=== PATIENT | female | born 1985 | race Caucasian/White ===

== ENCOUNTER 2024-05-03 22:18 | Inpatient (IN) | payer OTHER, SELFPAY ==
[2024-05-03] VITALS (12 sets, daily range): BP systolic 125–139; BP diastolic 71–108; BMI 38.1; BMI 37.5
[2024-05-03] MEDS: OFIRMEV 100 IV (16:31)
[2024-05-03] MEDS: NSS 1000 IV (16:32)
[2024-05-03 16:37] LABS: % Basophils 0.5 % (0-2); % Eosinophils 0.9 % (0-6); % Immature Granulocytes 0.6 % (0-0.5); % Lymphocytes 5.2 % (20.5-51.1); % Monocytes 7.2 % (1.7-9.3); % Neutrophils 85.6 % (42.2-75.2); Absolute Eosinophils 0.1 10^3/uL (0-0.7); Absolute Immature Granulocytes 0.1 10^3/uL (0-0.05); Absolute Lymphocytes 0.4 10^3/uL (1.2-3.4); Absolute Monocytes 0.6 10^3/uL (0.1-0.6); Absolute Neutrophils 6.7 10^3/uL (1.4-6.5); Hematocrit 37.9 % (37.0-47.0); Hemoglobin 12.6 g/dL (12.0-16.0); Mean Corp Hgb Conc. 33.2 g/dL (33.0-37.0); Mean Corpuscular Hgb 26.4 pg (27.0-31.0); Mean Corpuscular Volume 79.3 fL (81.0-99.0); Mean Platelet Volume 9.5 fL (7.4-10.4); Nucleated Red Blood Cells % 0 %; Platelet Count 320 10^3/uL (130-400); Red Blood Cell Count 4.78 10^6/uL (4.20-5.40); Red Cell Dist. Width 13.9 % (11.5-14.5); White Blood Cell Count 7.9 10^3/uL (4.8-10.8)
--- NOTE | 2024-05-03 16:41 | ED.GENMED ---
History of Present Illness
<Rick Ingram MD - Last Filed: 05/03/24 18:59>
General
Chief Complaint: Weakness
Source: patient and family
Exam Limitations: none
Time Seen by Provider: 05/03/24 16:19
History of Present Illness
History of Present Illness:
39-year-old female was in her normal state of health that she woke from a nap at her aunts house today. She woke with sudden right sided neck pain pain down her back with weakness of all extremities. No infectious symptoms. She has been treated
recently prolonged antibiotics for a dental infection. She has had no dental procedures done. She denies acute other infectious symptoms at this time.
Past History
<Rick Ingram MD - Last Filed: 05/03/24 18:59>
Past History
ED Past Medical History: Other (MS) and Other (Migraines)
ED Past Surgical History: and Gynecological
Review of Systems
<Rick Ingram MD - Last Filed: 05/03/24 18:59>
Review of Systems
All Other Systems: Not applicable
Respiratory: Reports no symptoms
Cardiac: Reports no symptoms
ABD/GI: Reports no symptoms
Phy Exam
<Rick Ingram MD - Last Filed: 05/03/24 18:59>
Physical Exam
Physical Exam:
GENERAL: Alert. Some stuttering like speech
EYE: Orbits normal.
NECK: Mild right paracervical tenderness.
ENT: Pharynx without erythema. Dental caries right upper central incisor
CARDIAC: Tachycardic and regular no murmur
LUNGS: Clear breath sounds,normal
ABDOMEN: Soft, without focal tenderness or distention
NEUROLOGICAL: Alert and oriented , weakness left arm greater than right arm. Able to assistant nurse manager. Able to raise her arms up. No movement of the lower extremities. Decreased subjective sensation. Patellar reflexes intact
SKIN: Warm and dry, no rash or lesion, no discoloration, skin intact.
MUSCULOSKELETAL: No edema,no deformity.Good color
PSYCH: Anxious
Course
<Rick Ingram MD - Last Filed: 05/03/24 18:59>
Orders/Labs/Results
Orders:
Orders
05/03/24 00:00
CefTRIAXone [Rocephin] 2,000 mg IV Q12H
05/03/24 Breakfast
Regular
05/03/24 16:20
Cardiac Monitoring- Treatment ONCE
IV Insert/Care/Rem.- Treatment PRN
0.9% Sodium Chloride 1000 ml [Nss] 1,000 ml IV BOLUS
Pulse Ox/cont/shift [RESP] Urgent
Quantity: 1
05/03/24 16:21
Electrocardiogram (*1) Urgent
Reason for Study: Other
Other Reason for Exam: sepsis
EKG- Treatment ONCE
Test Result ONCE
05/03/24 16:22
Acetaminophen 1000MG/100Ml [Ofirmev] 1,000 mg in 100 ml IV ONCE
Acetaminophen IV Indication:: ED Narcotic Naive Pt-ONCE
05/03/24 16:27
C-Reactive Protein Urgent
Comment: ADD ON
COVID-19 Antigen Urgent
Source: Nasal Swab
Complete Blood Count/With Diff Urgent
Erythrocyte Sed Rate Urgent
Comment: ADD ON
Lactic Acid Q4H
Comment: CANCEL 2nd LACTIC ACID IF 1st LACTIC ACID IS LESS THAN 2
05/03/24 16:28
Comprehensive Metabolic Panel Urgent
HCG, Serum Qualitative Screen Urgent
Blood Culture Urgent
AGATHA Source: Blood/Venous
Specimen Description:
05/03/24 16:36
CT Cervical Spine W/o Iv Contr Urgent
Comment:
Reason For Exam: right sided neack pain. fvere
CT Head W/o Iv Contrast Urgent
Comment:
Reason For Exam: right sided neck pain. fever
Cardiac Monitoring- Treatment ONCE
05/03/24 16:42
Add On- LAB Urgent
Tests Added?: CRP, Sed rate
Urinalysis Reflex To Culture Urgent
Date Specimen was Collected: 05/03/24
Time Specimen was Collected: 16:40
Urine Microscopic Reflex Cult Urgent
05/03/24 16:47
Piperacillin/Tazo 4.5 Gram [Zosyn] 4.5 gram in 100 ml IV NOW
05/03/24 17:11
MR Brain W/o & With Contrast Stat
Comment:
Reason For Exam: Fever/neck pain/paraplegia
OK for patient to be off Cardiac Monitoring for MRI: Yes
Recent pill cam endoscopy?: No
MR Cervical Spine Without & W Stat
Comment:
Reason For Exam: Fever/neck pain/paraplegia
Recent pill cam endoscopy?: No
05/03/24 17:26
Vancomycin [Vancocin] 2,000 mg 0.9% Sodium Chloride 500 ml [Nss] 500 ml IV NOW
05/03/24 18:27
Ketorolac [Toradol] 15 mg .ROUTE .STK-MED ONE
05/03/24 18:29
Ketorolac [Toradol] 15 mg IV NOW STA
05/03/24 21:43
MR Thoracic Spine W/o & With Routine
Comment:
Reason For Exam: Weakness
OK for patient to be off Cardiac Monitoring for MRI: Yes
Recent pill cam endoscopy?: No
05/03/24 21:44
Myelin Basic Protein, CSF [S] Urgent
Oligoclonal Band Profile [S] Urgent
Spinal Fluid Protein Urgent
05/03/24 21:46
CSF Cell Count Urgent
CSF Tube Number: 3
Cryptococcal Antigen, CSF [S] Urgent
Comment: tube #4
Spinal Fluid Glucose Urgent
CSF Tube Number: 2
CSF Culture with Gram Stain Urgent
AGATHA Source: Csf
Specimen Description:
# of Tube: 3
Gram Stain Urgent
AGATHA Source: Csf
Specimen Description:
Comment: tube #1
Meningitis Panel, CSF by PCR Urgent
AGATHA Source: Csf
Specimen Description:
05/03/24 21:50
Admit/Transfer Patient As Directed
Co-Sign Provider:
Level of Care: Inpatient admission
Assign to:: IMU- Intermediate Care
Physician / Group: Nasim
Diagnosis: Weakness, COVID-19
Reason for Hospitalization: Weakness, COVID-19
Expected length of stay greater than two midnights?: Yes
ELOS- Estimated Length of Stay in days: 3
I certify the patient meets the requirements for IP care: Yes
PRN Pain Medication Management As Directed
May give lesser potent ordered pain med per pt: Yes
preference::
Protocol:: Medication orders for pain may be administered in a
manner that supports deferring to patient preference
when the pt is:
- Requesting an ordered lesser potent pain medication.
Least to most potent pain medications are defined
as: acetaminophen < NSAID < tramadol < opioids
(morphine, oxycodone, hydromorphone).
- Requesting a lesser dose of the same medication IF
ORDERED.
- Requesting a less intrusive route of administration
if both routes are prescribed by the provider (PO <
IV).
05/03/24 21:53
Code Status As Directed
Resuscitation Status: Full Code
05/03/24 22:00
Lyme Progressive Urgent
05/03/24 23:47
Acetaminophen [Tylenol] 650 mg PO Q4HPRN PRN
VANCOMYCIN Pharmacy to Dose [VANCOCIN Pharmacy to Dose] 1 each Pharmacy To Prepare [Call Pharmacy To Prepare] 0 ml IV PER PROTOCOL
05/03/24 23:47
Consult Notification Routine
Specialty to Notify: Infectious Disease
INFECTIOUS DISEASE CONSULT Routine
Consulting Provider: Willie Gagnon
Was physician already notified: No
Reason for consult: Weakness, COVID-19
NEUROLOGY CONSULT Routine
Consulting Provider: Nico Josue
Was physician already notified: Yes
Reason for consult: Weakness, COVID-19
TSH Reflex To Free T4 Routine
Activity As Directed
Activity Level: Ambulate
With Assistance
EKG with chest pain [ECG as needed] As Directed
ECG as needed for:: Chest Pain
I/O [Intake/ Output] As Directed
Frequency: Per unit guidelines
Neurological Checks As Directed
Frequency: q4h
Pneumatic Compression Sleeves As Directed
Type: Knee high
Precautions As Directed
Type of Precautions: Droplet
Vital Signs As Directed
Frequency: Per unit guidelines
Weight As Directed
Frequency: Daily
Oxygen Therapy [O2 Therapy] [RESP] Routine
Titrate/Wean O2 to maintain O2 sat greater than (%): 94
Ot Eval And Treat Routine
PT Consult [Pt Eval And Treat] Routine
Activity Level: Ambulate
With Assistance
DX Deep Vein Thrombosis Video Routine
05/04/24 06:00
Complete Blood Count/No Diff IN AM
05/04/24 08:00
Lansoprazole [Prevacid] 30 mg PO DAILY
Sertraline HCl [Zoloft] 50 mg PO DAILY
Abnormal Lab Results
05/03/24 05/03/24 05/03/24
16:27 16:28 16:42
MCV 79.3 L fL
(81.0-99.0)
MCH 26.4 L pg
(27.0-31.0)
Abs Immat Gran (auto) 0.1 H 10^3/uL
(0-0.05)
Absolute Neuts (auto) 6.7 H 10^3/uL
(1.4-6.5)
Absolute Lymphs (auto) 0.4 L 10^3/uL
(1.2-3.4)
Immature Gran % 0.6 H %
(0-0.5)
Neutrophils % 85.6 H %
(42.2-75.2)
Lymphocytes % 5.2 L %
(20.5-51.1)
BUN 18 H mg/dl
(7-17)
Alkaline Phosphatase 131 H U/L
(38-126)
C-Reactive Protein 25.00 H mg/L
(0.0-10.00)
Ur Occult Blood Reflex 2+ A
(Negative)
Urine RBC 3-6 A /HPF
(0-2)
SARS-CoV-2 Antigen Positive A
(Negative)
05/03/24 16:27
05/03/24 16:28
Vital Signs
Initial and Last Documented VS:
Initial Vital Signs
Pulse Ox
98
05/03/24 16:13
Last Documented Vital Signs
Temp Pulse Resp BP Pulse Ox
98.6 F 80 16 131/108 100
05/04/24 01:49 05/03/24 23:45 05/03/24 23:45 05/03/24 22:30 05/04/24 00:49
<Willie Webber, DO - Last Filed: 05/04/24 01:58>
Orders/Labs/Results
Orders:
Orders
05/03/24 00:00
CefTRIAXone [Rocephin] 2,000 mg IV Q12H
05/03/24 Breakfast
Regular
05/03/24 16:20
Cardiac Monitoring- Treatment ONCE
IV Insert/Care/Rem.- Treatment PRN
0.9% Sodium Chloride 1000 ml [Nss] 1,000 ml IV BOLUS
Pulse Ox/cont/shift [RESP] Urgent
Quantity: 1
05/03/24 16:21
Electrocardiogram (*1) Urgent
Reason for Study: Other
Other Reason for Exam: sepsis
EKG- Treatment ONCE
Test Result ONCE
05/03/24 16:22
Acetaminophen 1000MG/100Ml [Ofirmev] 1,000 mg in 100 ml IV ONCE
Acetaminophen IV Indication:: ED Narcotic Naive Pt-ONCE
05/03/24 16:27
C-Reactive Protein Urgent
Comment: ADD ON
COVID-19 Antigen Urgent
Source: Nasal Swab
Complete Blood Count/With Diff Urgent
Erythrocyte Sed Rate Urgent
Comment: ADD ON
Lactic Acid Q4H
Comment: CANCEL 2nd LACTIC ACID IF 1st LACTIC ACID IS LESS THAN 2
05/03/24 16:28
Comprehensive Metabolic Panel Urgent
HCG, Serum Qualitative Screen Urgent
Blood Culture Urgent
AGATHA Source: Blood/Venous
Specimen Description:
05/03/24 16:36
CT Cervical Spine W/o Iv Contr Urgent
Comment:
Reason For Exam: right sided neack pain. fvere
CT Head W/o Iv Contrast Urgent
Comment:
Reason For Exam: right sided neck pain. fever
Cardiac Monitoring- Treatment ONCE
05/03/24 16:42
Add On- LAB Urgent
Tests Added?: CRP, Sed rate
Urinalysis Reflex To Culture Urgent
Date Specimen was Collected: 05/03/24
Time Specimen was Collected: 16:40
Urine Microscopic Reflex Cult Urgent
05/03/24 16:47
Piperacillin/Tazo 4.5 Gram [Zosyn] 4.5 gram in 100 ml IV NOW
05/03/24 17:11
MR Brain W/o & With Contrast Stat
Comment:
Reason For Exam: Fever/neck pain/paraplegia
OK for patient to be off Cardiac Monitoring for MRI: Yes
Recent pill cam endoscopy?: No
MR Cervical Spine Without & W Stat
Comment:
Reason For Exam: Fever/neck pain/paraplegia
Recent pill cam endoscopy?: No
05/03/24 17:26
Vancomycin [Vancocin] 2,000 mg 0.9% Sodium Chloride 500 ml [Nss] 500 ml IV NOW
05/03/24 18:27
Ketorolac [Toradol] 15 mg .ROUTE .STK-MED ONE
05/03/24 18:29
Ketorolac [Toradol] 15 mg IV NOW STA
05/03/24 21:43
MR Thoracic Spine W/o & With Routine
Comment:
Reason For Exam: Weakness
OK for patient to be off Cardiac Monitoring for MRI: Yes
Recent pill cam endoscopy?: No
05/03/24 21:44
Myelin Basic Protein, CSF [S] Urgent
Oligoclonal Band Profile [S] Urgent
Spinal Fluid Protein Urgent
05/03/24 21:46
CSF Cell Count Urgent
CSF Tube Number: 3
Cryptococcal Antigen, CSF [S] Urgent
Comment: tube #4
Spinal Fluid Glucose Urgent
CSF Tube Number: 2
CSF Culture with Gram Stain Urgent
AGATHA Source: Csf
Specimen Description:
# of Tube: 3
Gram Stain Urgent
AGATHA Source: Csf
Specimen Description:
Comment: tube #1
Meningitis Panel, CSF by PCR Urgent
AGATHA Source: Csf
Specimen Description:
05/03/24 21:50
Admit/Transfer Patient As Directed
Co-Sign Provider:
Level of Care: Inpatient admission
Assign to:: IMU- Intermediate Care
Physician / Group: Nasim
Diagnosis: Weakness, COVID-19
Reason for Hospitalization: Weakness, COVID-19
Expected length of stay greater than two midnights?: Yes
ELOS- Estimated Length of Stay in days: 3
I certify the patient meets the requirements for IP care: Yes
PRN Pain Medication Management As Directed
May give lesser potent ordered pain med per pt: Yes
preference::
Protocol:: Medication orders for pain may be administered in a
manner that supports deferring to patient preference
when the pt is:
- Requesting an ordered lesser potent pain medication.
Least to most potent pain medications are defined
as: acetaminophen < NSAID < tramadol < opioids
(morphine, oxycodone, hydromorphone).
- Requesting a lesser dose of the same medication IF
ORDERED.
- Requesting a less intrusive route of administration
if both routes are prescribed by the provider (PO <
IV).
05/03/24 21:53
Code Status As Directed
Resuscitation Status: Full Code
05/03/24 22:00
Lyme Progressive Urgent
05/03/24 23:47
Acetaminophen [Tylenol] 650 mg PO Q4HPRN PRN
VANCOMYCIN Pharmacy to Dose [VANCOCIN Pharmacy to Dose] 1 each Pharmacy To Prepare [Call Pharmacy To Prepare] 0 ml IV PER PROTOCOL
05/03/24 23:47
Consult Notification Routine
Specialty to Notify: Infectious Disease
INFECTIOUS DISEASE CONSULT Routine
Consulting Provider: Willie Gagnon
Was physician already notified: No
Reason for consult: Weakness, COVID-19
NEUROLOGY CONSULT Routine
Consulting Provider: Nico Josue
Was physician already notified: Yes
Reason for consult: Weakness, COVID-19
TSH Reflex To Free T4 Routine
Activity As Directed
Activity Level: Ambulate
With Assistance
EKG with chest pain [ECG as needed] As Directed
ECG as needed for:: Chest Pain
I/O [Intake/ Output] As Directed
Frequency: Per unit guidelines
Neurological Checks As Directed
Frequency: q4h
Pneumatic Compression Sleeves As Directed
Type: Knee high
Precautions As Directed
Type of Precautions: Droplet
Vital Signs As Directed
Frequency: Per unit guidelines
Weight As Directed
Frequency: Daily
Oxygen Therapy [O2 Therapy] [RESP] Routine
Titrate/Wean O2 to maintain O2 sat greater than (%): 94
Ot Eval And Treat Routine
PT Consult [Pt Eval And Treat] Routine
Activity Level: Ambulate
With Assistance
DX Deep Vein Thrombosis Video Routine
05/04/24 06:00
Complete Blood Count/No Diff IN AM
05/04/24 08:00
Lansoprazole [Prevacid] 30 mg PO DAILY
Sertraline HCl [Zoloft] 50 mg PO DAILY
Abnormal Lab Results
05/03/24 05/03/24 05/03/24
16:27 16:28 16:42
MCV 79.3 L fL
(81.0-99.0)
MCH 26.4 L pg
(27.0-31.0)
Abs Immat Gran (auto) 0.1 H 10^3/uL
(0-0.05)
Absolute Neuts (auto) 6.7 H 10^3/uL
(1.4-6.5)
Absolute Lymphs (auto) 0.4 L 10^3/uL
(1.2-3.4)
Immature Gran % 0.6 H %
(0-0.5)
Neutrophils % 85.6 H %
(42.2-75.2)
Lymphocytes % 5.2 L %
(20.5-51.1)
BUN 18 H mg/dl
(7-17)
Alkaline Phosphatase 131 H U/L
(38-126)
C-Reactive Protein 25.00 H mg/L
(0.0-10.00)
Ur Occult Blood Reflex 2+ A
(Negative)
Urine RBC 3-6 A /HPF
(0-2)
SARS-CoV-2 Antigen Positive A
(Negative)
05/03/24 16:27
05/03/24 16:28
Vital Signs
Initial and Last Documented VS:
Initial Vital Signs
Pulse Ox
98
05/03/24 16:13
Last Documented Vital Signs
Temp Pulse Resp BP Pulse Ox
98.6 F 80 16 131/108 100
05/04/24 01:49 05/03/24 23:45 05/03/24 23:45 05/03/24 22:30 05/04/24 00:49
<Rick Ingram MD - Last Filed: 05/03/24 18:59>
MDM/Problems Addressed
Differential Diagnosis Includes:
Large differential. Patient did not know she had a fever. She has had no recent infectious issues except for a dental infection that has been treated with multiple doses of amoxicillin. Would have to entertain cervical epidural abscess. Causing
lower extremity weakness and some upper extremity weakness. Infection with weakness secondary to MS flare. Workup in progress.
<Rick Ingram MD - Last Filed: 05/03/24 18:59>
*Pulse Oximetry
Patient hypoxic: no
*EKG
Interpreted by ED Provider?: Yes
Interpretation: abnormal
Comparison EKG: no comparison EKG present
Heart Rate: 113
Rate: tachycardiac
Rhythm: sinus
[place]: normal axis
Interval: normal interval
QRS Pattern: normal QRS
Ischemia: no ischemia
*Mannequin Maker Interpretation
Rate: normal
Interpretation: normal
Heart Rate: 96
Rhythm: sinus
<Willie Webber DO - Last Filed: 05/04/24 01:58>
*Critical Care Note
Total Time (30-74mins, 75-104mins- exclusive of procedures): 30 ( Critical care statement: A total of 30 minutes of critical care time was provided for this patient. This time is separate from time utilized to perform the aforementioned documented
procedures. Aggregate critical care time includes only time during which I was engaged in work direct)
<Rick Ingram MD - Last Filed: 05/03/24 18:59>
Update Note
Update Note:
1640.... Patient with weakness of both upper extremities left greater than right. Typically left-sided is weaker. However patient describes both as being weaker than baseline. She has no movement of her lower extremities. Decreased sensation.
She does have patellar reflexes. Difficult case. With sudden onset of symptoms and fever differential is very large at this point. It would include a cervical epidural abscess. Secondary infection with resulting MS flare.
1700... Awaiting response from neurology. They were texted immediately
1715... Neurology will be coming in. Patient and family updated.
1900.... Awaiting neurology and MRI
<Willie Webber DO - Last Filed: 05/04/24 01:58>
Update Note
Update Note:
1640.... Patient with weakness of both upper extremities left greater than right. Typically left-sided is weaker. However patient describes both as being weaker than baseline. She has no movement of her lower extremities. Decreased sensation.
She does have patellar reflexes. Difficult case. With sudden onset of symptoms and fever differential is very large at this point. It would include a cervical epidural abscess. Secondary infection with resulting MS flare.
1700... Awaiting response from neurology. They were texted immediately
1715... Neurology will be coming in. Patient and family updated.
1900.... Awaiting neurology and MRI
05/03/20242 PM: In to see the patient to discuss MRI findings. Neurologist, Dr. Nico Josue at the bedside as well. Patient to be admitted to [facility] for continued care per the recommendation of neurology. Hospitalist aware.
ED Attending Note
<Rick Ingram MD - Last Filed: 05/03/24 18:59>
-
Portions of this chart may have been created with voice recognition software.� Occasional wrong word or��sound alike� substitutions may have occurred due to the inherent limitations of voice recognition software.
Discharge Plan
Departure
Patient Disposition: Admit
Date of Disposition: 05/03/24
Time of Disposition: 21:13
Admit to: Telemetry
Presentation/result/management discussed w/ accepting MD/DO: Hospitalist
Discharge Problem:
sudden paralysis, COVID-19
Interventions
Interventions:
*Risk Screen - Suicide Last Done: 05/03/24 19:29
*General Assessment Last Done: 05/03/24 19:29
*Neglect/Abuse Screening Last Done: 05/03/24 19:29
ED- Fall Risk Assessment Last Done: 05/03/24 17:35
*ED COVID-19 Vaccine History Last Done: 05/04/24 00:30
*Nursing Disposition Last Done: 05/04/24 00:01
ED- Cardiac Assessment Last Done: 05/03/24 17:35
ED- Neurological Assessment Last Done: 05/03/24 17:35
ED- Pulmonary Assessment Last Done: 05/03/24 17:35
Discharge Date and Time
Discharge Date/Time: 05/04/24 00:02
[2024-05-03 16:48] LABS: Lactic Acid 1.9 mmol/L (0.7-2.0)
[2024-05-03 16:50] LABS: Urine Albumin Negative (Neg - Trace); Urine Bilirubin Negative (Negative); Urine Character Clear (Clear); Urine Color Yellow; Urine Glucose Negative (Negative); Urine Ketone Negative (Negative); Urine Leukocyte Negative (Negative); Urine Nitrite Negative (Negative); Urine Occult Blood 2+ (Negative); Urine Urobilinogen Negative (Neg - 1+)
[2024-05-03 16:52] LABS: HCG, Serum Qualitative Screen Negative
[2024-05-03 16:57] LABS: ALT (SGPT) 20 U/L (0-35); AST (SGOT) 20 U/L (14-36); Albumin 4.5 g/dl (3.5-5.0); Alkaline Phosphatase 131 U/L (38-126); Blood Urea Nitrogen 18 mg/dl (7-17); Calcium 9.5 mg/dl (8.4-10.2); Carbon Dioxide 25 mmol/L (22-30); Chloride 103 mmol/L (98-107); Estimated Creatinine Clearance > 125 ml/min; Glucose 98 mg/dl (70-99); Sodium 142 mmol/L (135-145); Total Bilirubin 0.2 mg/dl (0.2-1.3); Total Protein 7.4 g/dl (6.3-8.2); eGFR > 60.00
[2024-05-03 17:01] LABS: COVID-19 Antigen Positive (Negative)
[2024-05-03 17:08] LABS: Urine White Cell 0-2 /HPF (0-5)
[2024-05-03] MEDS: ZOSYN 100 IV (17:27)
[2024-05-03] MEDS: VANCOCIN 540 MG IV (18:09)
[2024-05-03 18:13] LABS: Erythrocyte Sed Rate 19 mm/hour (0-20)
[2024-05-03] MEDS: TORADOL 15 MG IV (19:06)
--- NOTE | 2024-05-03 21:40 | CON.NEURO4 ---
Consultation - Neurology 4
-
CONSULTING PHYSICIAN: Nico Josue MD
REFERRING PHYSICIAN: Hospitalist
DICTATED BY: Nico Josue MD
DATE/TIME OF REQUEST: 05/03/2024
DATE/TIME OF CONSULTATION: 05/03/2024 2000HRS
Reason for Consultation: Weakness
History of Present Illness: This is a 39 year old right handed female who has presented to the hospital with (chief complaint) of neck pain and weakness. She gives a h/o chronic migraines, Multiple sclerosis seizures and obesity who has been
previously evaluated by [facility] @ [facility]. She had been in her USOH till this afternoon. She had driven to [place] with family for a concert on Saturday. Earlier this morning she drove home. Later she took a nap and woke up with headache and neck
pain. She then reported to her family she couldnt move her legs. She was brought to ER
A week ago she was seen by her dentist for caries and decaying front tooth and placed on Amoxicillin
On my exam pat awake alert oriented in no distress with normal speech and give away pattern of weakness. Claims lack of sensation from hip down. No loss of sensation in groin
Lumbar puncture attempted. Given obesity and difficulty positioning patient unable to obtain access subarachnoid space. No CSF collected.
Pat is COVID +
Past Medical History: MS, migraines
Surgical History: C Section
Family History: NC
Social History: Lives at home with her family
Allergies: Benadryl tetanus
Home Medications: diroximel fumarate 231 mg capsule,delayed release (Vumerity) 462 mg PO BID 05/03/24
estradiol 2 mg tablet 2 mg PO DAILY 05/03/24
gabapentin 400 mg capsule 400 mg PO TID 05/03/24
galcanezumab-gnlm 120 mg/mL subcutaneous pen injector (Emgality Pen) 120 mg SC MONTHLY 05/03/24
methylprednisolone 4 mg tablets in a dose pack 4 mg PO PER PKG DIR 05/03/24
omeprazole 20 mg capsule,delayed release 20 mg PO DAILY 05/03/24
ondansetron HCl 4 mg tablet 4 mg PO TIDPRN PRN nausea 05/03/24
sertraline 50 mg tablet 50 mg PO DAILY 05/03/24
sumatriptan succinate 50 mg tablet 50 mg PO UD PRN migraine 05/03/24
Review of Symptoms:
Patient denies any fever, headache, chest pain, shortness of breath, GI or symptoms.
�Per the HPI.�All systems are reviewed negative except above.
�- Remove any of these problems that patient may have complained about in the HPI.
�- If patient is unresponsive, intubated or demented, say 'Per the HPI. I am unable to obtain a complete review of systems�because of patient's inability to provide history.'
Vital Signs:
The patient has a
Temp Pulse Resp BP Pulse Ox
37.1 C 74 22 133/83 99
05/03/24 17:00 05/03/24 21:15 05/03/24 21:15 05/03/24 21:05 05/03/24 21:15
Physical Exam:
The patient is afebrile, heart sounds S1 and S2 are (regular / irregular), and chest is clear to auscultation bilaterally.
-
Neurologic Examination:
The patient is awake, alert and oriented x 3. She is able to follow commands and answer questions appropriately. There is no aphasia or dysarthria. On cranial nerve assessment, pupils are 3 mm bilateral, round and reactive to light and
accommodation. Visual haynes are full. Extraocular movements are intact. Facial sensations are intact and bilaterally symmetrical, there is no facial asymmetry. Hearing is intact bilaterally to normal conversation volume. Tongue palate and uvula
are midline. Sternocleidomastoid strengths are full bilaterally.
Motor strength 1/5 bilateral upper and lower extremities, give away pattern. There is no drift or involuntary movement noted. Deep tendon reflexes are 2+ bilateral upper and lower extremities and Babinski is absent bilaterally. Sensations of pain,
touch, temperature and vibration are impaired. Coordination is intact by finger to nose bilaterally. Rombergs and Gait could not be tested as pat is bedbound
No incontinence
Lab Results: Addendum
Neuro Imaging: MRI brain shows 3-4 T2 lesions with intact corpus callosum nonspecific migraine vs demyelination.
MRI C-Spine WNL shows no lesions
Impression:
Ms. CLEMENT BARTH is a 39 year old F who has presented to the hospital with (symptoms/chief complaint) of neck pain and generalized weakness.
Differentials for the patient's presentation include:
1. MS exacerbation
2. Transverse myelitis
3. Epidural abscess
4. COVID
Patient has the following risk factors for their symptoms:
IV Tenecteplase/IAT candidacy
Recommendations:
1. IV antibiotics
2. Lumbar puncture
3. MRI Thoracic spine with Edd
4. Consider IV Solumedrol if T-Spine reveals transverse myelitis and no new infections
5. ID consult
6. PT/OT
Discussed patient care with: Hospitalist
Allergies
-
Allergies
Allergy/AdvReac Type Severity Reaction Status Date / Time
diphenhydramine Allergy Hives Verified 05/03/24 16:20
[From Benadryl]
Tetanus Vaccines and Toxoid Allergy Unknown Verified 05/03/24 16:20
Vital Signs and Labs
-
Vital Signs and Labs:
Vital Signs
Temp Pulse Resp BP Pulse Ox
37.1 C 74 22 133/83 99
05/03/24 17:00 05/03/24 21:15 05/03/24 21:15 05/03/24 21:05 05/03/24 21:15
Lab Results
05/03/24 16:27
05/03/24 16:28
Sodium 142 mmol/L (135-145) 05/03/24 16:28
Potassium 4.0 mmol/L (3.5-5.1) 05/03/24 16:28
BUN 18 mg/dl (7-17) H 05/03/24 16:28
Glucose 98 mg/dl (70-99) 05/03/24 16:28
Calcium 9.5 mg/dl (8.4-10.2) 05/03/24 16:28
Medications
-
Home Medications
�Medication �Instructions �Recorded
diroximel fumarate 231 mg 462 mg PO BID 05/03/24
capsule,delayed release (Vumerity)
estradiol 2 mg tablet 2 mg PO DAILY 05/03/24
gabapentin 400 mg capsule 400 mg PO TID 05/03/24
galcanezumab-gnlm 120 mg/mL 120 mg SC MONTHLY 05/03/24
subcutaneous pen injector
(Emgality Pen)
methylprednisolone 4 mg tablets in 4 mg PO PER PKG DIR 05/03/24
a dose pack
omeprazole 20 mg capsule,delayed 20 mg PO DAILY 05/03/24
release
ondansetron HCl 4 mg tablet 4 mg PO TIDPRN PRN nausea 05/03/24
sertraline 50 mg tablet 50 mg PO DAILY 05/03/24
sumatriptan succinate 50 mg tablet 50 mg PO UD PRN migraine 05/03/24
--- NOTE | 2024-05-03 21:58 | HPS.HSE ---
Family Physician
-
Family Physician: Heidi Early
Chief Complaint
-
Weakness / Neck Pain
History of Present Illness
Patient is a 39y F with PMH significant for MS and migraines who presents to ED complaining of neck pain / back pain and global weakness that started this afternoon. Patient states that she was feeling well lately. She drove to [place] for a
concert yesterday and drove back today. She was in the pool / swimming earlier today. She took a nap this afternoon around 2PM. She woke around 3:30 PM with sharp pain in the R neck and radiating down the back. She states that she 'could not
move'. Apparently she was able to sit upright after waking, but then noted that she was completely unable to move her arms or her legs. She had no pain other than the previously mentioned neck / back pain.
Patient had no other symptoms such as cough, fevers / chills, etc.
Patient has MS and states she was diagnosed one year ago. She is followed by Neurology at [facility].
Patient states that her initial symptoms of R sided numbness have never improved. She has also appreciated gradual L sided weakness over the past year.
Her only new medications are Emgality (1st dose on 04/27) and amoxicillin.
Patient reports dental infection (R upper incisor) and notes that she has been on three consecutive courses of amoxicillin. Her last dose of abx was yesterday.
Medical History
Past Medical History
Past Medical History: Reports Other
Additional Past Medical History:
Multiple Sclerosis
Migraine Headaches
Obesity
Past Surgical History: Reports Other
Additional Past Surgical History:
BRAIN
Social History
Tobacco: Former Smoker (Quit smoking 4 years ago. Approx 20 pack years.)
Alcohol: None
Drug: None
Family History
Family History: Not pertinent
Allergies / Home Medications
Allergies reflects when Allergies were last updated in [employer].
Home Medications with original date entered in [employer]
Allergy/Medication List:
Allergies
Allergy/AdvReac Type Severity Reaction Status Date / Time
diphenhydramine Allergy Hives Verified 05/03/24 16:20
[From Benadryl]
Tetanus Vaccines and Toxoid Allergy Unknown Verified 05/03/24 16:20
Home Medications
diroximel fumarate 231 mg capsule,delayed release (Vumerity) 462 mg PO BID 05/03/24
estradiol 2 mg tablet 2 mg PO DAILY 05/03/24
gabapentin 400 mg capsule 400 mg PO TID 05/03/24
galcanezumab-gnlm 120 mg/mL subcutaneous pen injector (Emgality Pen) 120 mg SC MONTHLY 05/03/24
methylprednisolone 4 mg tablets in a dose pack 4 mg PO PER PKG DIR 05/03/24
omeprazole 20 mg capsule,delayed release 20 mg PO DAILY 05/03/24
ondansetron HCl 4 mg tablet 4 mg PO TIDPRN PRN nausea 05/03/24
sertraline 50 mg tablet 50 mg PO DAILY 05/03/24
sumatriptan succinate 50 mg tablet 50 mg PO UD PRN migraine 05/03/24
Review of Systems
-
History Source: Patient
A 12 point ROS was completed and negative except as noted: Yes
Constitutional: Reports Fatigue; Denies Fever or Chills
EENT: Denies Sore Throat
Respiratory: Denies Cough or Trouble Breathing
Cardiac: Denies Chest Pain or Palpitations
Abdomen/GI: Denies Abdominal Pain, Nausea, Vomiting or Diarrhea
: Denies Dysuria or Flank Pain
Musculoskeletal: Reports Other (Neck pain / Back Pain); Denies Joint Pain or Edema
Neurological: Reports Headache, Weakness and Numbness
Psych: Denies Depression or Anxiety
Physical Exam
Vital Signs
Vital Signs
Temp Pulse Resp BP Pulse Ox
98.7 F 74 22 133/83 99
05/03/24 17:00 05/03/24 21:15 05/03/24 21:15 05/03/24 21:05 05/03/24 21:15
Physical Exam
General: Other (39y F in no acute distress. Awake and alert and oriented.)
HEENT: Moist mucous membranes, PERRLA and Other (Thick neck.)
Respiratory: Clear; No Wheezes, Rales or Rhonchi
Cardiac: S1/S2 and Regular Rhythm; No Murmur
GI: Soft, Non Tender, Non Distended and Normal Bowel Sounds
Musculoskeletal: No Clubbing, No Cyanosis and No Edema
Neuro: AO x 3 and Other (Patient with near-global weakness by exam versus absence of effort. No evident hyperreflexia. No clear sensory level (reports no sensation in legs or arms, but positive sensation hips and abdomen))
Psych: No Agitated, Anxious or Depressed
Laboratory Results
-
05/03/24 16:27
05/03/24 16:28
Laboratory Results
Lactic Acid Cancelled 05/03/24 20:30
Total Bilirubin 0.2 mg/dl (0.2-1.3) 05/03/24 16:28
AST 20 U/L (14-36) 05/03/24 16:28
ALT 20 U/L (0-35) 05/03/24 16:28
Alkaline Phosphatase 131 U/L (38-126) H 05/03/24 16:28
Impression/Plan
-
A/P: Patient is a 39y F with PMH significant for MS who presents to ED complaining of sudden / global weakness.
Global Weakness
- Admit for further evaluation and treatment.
- Symptoms / exam are somewhat confounding with no clear sensory level, atypical pattern of weakness, etc.
- Fever without other symptoms.
- Known MS, but MRI brain and C-spine without significant new lesions, etc.
- Neurology evaluation appreciated.
- LP pending.
- Check MRI T-spine as well for completeness - but upper extremity symptoms make lower lesion / issue unlikely.
- Follow serial neuro exams for any changes.
- Continue empiric IV abx for now and follow-up LP / culture data / etc.
- ? EMG / NCS if symptoms worsen or persist.
COVID Positive
- Patient with fever on arrival to 102.9. No symptoms of cough, dyspnea, sore throat, chills, etc.
- No prior SARS-CoV-2 vaccinations.
- Not currently hypoxemic.
- ? BRADLEY due to COVID; however, deficits do no match typical BRADLEY as noted above.
- ID evaluation for additional recommendations.
- Follow proper precautions.
Multiple Sclerosis
- Diagnosed 1 year ago and followed at [facility].
- Patient reports persistent R numbness and L weakness since that time.
- Imaging this far does not show significant collection of new lesions.
Chronic Migraine Headache
- Started om Emgality about one week ago. Doubt this is related to current presentation.
Anxiety / Depression
- Stable. Continue sertraline.
Obesity due to excess calories
- Affects all aspects of care.
- Encourage healthy diet and increased activity with goal of weight loss.
DVT Prophylaxis: SCDs
Code Status: Full
[2024-05-04] VITALS (13 sets, daily range): BP systolic 116–133; BP diastolic 70–90; PULSE 82; O2SAT 98
[2024-05-04] MEDS: TORADOL 15 MG IV (01:16)
[2024-05-04] MEDS: ROCEPHIN 2000 MG IV ×2 (01:18→01:23)
[2024-05-04] MEDS: STERILE WATER FOR INJECTION 20 ML IV (01:19)
[2024-05-04] MEDS: ROCEPHIN IV (02:20)
--- NOTE | 2024-05-04 03:04 | PTCARENOTE ---
Addendum entered by Courtney Gimenez RN 05/04/24 03:25:
Pt placed on Airborne precaution due to ordered Meningitis Panel.
Original Note:
Pt AAOX3. Upon arrival to IMU Pt states she is starting to get movement back in her fingers/hand to wrists. Pt able to hold call wheat and push buttons. 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
told her it 'could be from steroids' she was prescribed for a MS flare. Pt's current at home med list includes steroids for a MS flare, will pass on to day shift. Pt also informing RN that she feels like she has water in here ears with no pain and
can hear appropriately, will pass on to day shift. Pt having pain in head down back to where LP was attempted, corina [employer] made aware one time order for Toradol given. Reassessment Pt had mild relief to Pt's acceptable pain level. Pt has no further
complaints at this time. Call wheat within reach. Assessment care and vitals as charted.
[2024-05-04] MEDS: VANCOCIN 275 MG IV (05:02)
[2024-05-04] MEDS: TYLENOL 650 MG PO ×4 (05:18→22:55)
[2024-05-04 05:58] LABS: Hematocrit 37.7 % (37.0-47.0); Hemoglobin 12.4 g/dL (12.0-16.0); Mean Corp Hgb Conc. 32.9 g/dL (33.0-37.0); Mean Corpuscular Hgb 26.2 pg (27.0-31.0); Mean Corpuscular Volume 79.5 fL (81.0-99.0); Mean Platelet Volume 9.9 fL (7.4-10.4); Platelet Count 298 10^3/uL (130-400); Red Blood Cell Count 4.74 10^6/uL (4.20-5.40); White Blood Cell Count 5.9 10^3/uL (4.8-10.8)
[2024-05-04 06:12] LABS: ALT (SGPT) 18 U/L (0-35); AST (SGOT) 18 U/L (14-36); Albumin 3.9 g/dl (3.5-5.0); Alkaline Phosphatase 100 U/L (38-126); Blood Urea Nitrogen 10 mg/dl (7-17); Calcium 8.6 mg/dl (8.4-10.2); Carbon Dioxide 29 mmol/L (22-30); Chloride 103 mmol/L (98-107); Direct Bilirubin 0.1 mg/dl (0.0-0.4); Estimated Creatinine Clearance > 125 ml/min; Glucose 105 mg/dl (70-99); Potassium 3.7 mmol/L (3.5-5.1); Sodium 140 mmol/L (135-145); Total Bilirubin 0.2 mg/dl (0.2-1.3); Total Protein 6.7 g/dl (6.3-8.2); eGFR > 60.00
--- NOTE | 2024-05-04 07:55 | W.PN.HOSP.TC ---
Addendum entered and electronically signed by Jim Gonzalez MD 05/04/24 15:53:
COVID-19 asymptomatic not requiring oxygen. Known history of MS immunocompromise outpatient steroids. Start Paxlovid. No antibiotics indicated. ID consulted overnight.
Bilateral lower extremity weakness numbness. Possibly related to MS flare in the setting of acute infection versus GBS versus transverse myelitis versus encephalitis.
MRI brain and C-spine reviewed. For MRI thoracic lumbar spine. LP pending, IR consulted however they would like to see what the MRI transfer spine/lumbar spine show prior to the LP.
Original Note:
Today's Communication/Plan
-
Started on Paxlovid
MRI lumbar spine
Lumbar puncture
Assessment / Plan
Assessment / Plan
39-year-old female, with past medical history of MS (diagnosed 1 year ago), migraines presented with sudden onset lower extremity weakness and loss of sensation, neck stiffness. Patient was febrile, Tmax at 1020.9 on presentation, elevated CRP at
25. Started on empiric antibiotics, currently on ceftriaxone and vancomycin.
Impression
Lower extremity weakness
COVID-positive
Multiple sclerosis
Migraine
Anxiety/depression
Plan
#Lower extremity weakness
Etiology might be secondary to MS flare versus transverse myelitis versus Guillian barre versus COVID infection resulting in encephalitis.
Acute onset
Patient is able to wiggle her toes on the right lower extremity today
Patient had a recent dental infection for which she completed a course of antibiotics/Medrol Dosepak
Brain MRI�no new demyelinating lesions, cervical spine MRI�no evidence of demyelinating disease, no foraminal/spinal canal stenosis.
Lumbar spine MRI�pending
ID consulted�recommended discontinuing vancomycin/ceftriaxone.
LP per neurology-unsuccessful attempts yesterday, IR consulted-plan on doing LP after MRI lumbar spine.
Awaiting blood cultures
Neurology consult
# COVID positive
Started on 5-day course of Paxlovid-as per ID
Currently on room air
# Multiple sclerosis
No new demyelinating lesions
Residual weakness from prior
# Migraine
Started on Emgality 1 week ago
#Anxiety/depression
Continue sertraline
DVT prophylaxis�SCDs
Anticipated Discharge: 24 - 48 hours
Subjective/Interval History
-
Date of Service: May 04, 2024
No acute overnight events. Patient did not develop fevers/chills. No worsening of the weakness/tingling/numbness.
Patient reports that she is able to wiggle her toes on the right side, which she was not able to do before.
Objective Data
-
Labs:
Laboratory Results
05/04/24
05:32
WBC 5.9
Hgb 12.4
Hct 37.7
Plt Count 298
Sodium 140
Potassium 3.7
Chloride 103
Carbon Dioxide 29
BUN 10
Creatinine 0.7
Glucose 105 H
Calcium 8.6
Total Bilirubin 0.2
AST 18
ALT 18
Alkaline Phosphatase 100
Vital Signs:
Vital Signs
Temp Pulse Resp BP Pulse Ox
98.9 F 78 19 133/90 96
05/04/24 03:40 05/04/24 06:00 05/04/24 06:00 05/04/24 06:00 05/04/24 06:00
I&O
05/03/24 05/04/24 05/05/24
06:59 06:59 06:59
Intake Total 555 / 555
Output Total 350 / 350
Balance 205 / 205
Review of Systems
-
All other systems: Reviewed and negative (As per HPI)
Physical Exam
-
General: No Apparent Distress
HEENT: Normocephalic and Atraumatic
Respiratory: Clear to Auscultation, Non Labored Respirations and Chest Tubes; Negative Wheezes, Rales, Rhonchi or Crackles
Cardiac: S1/S2
GI: Soft, Nontender, Nondistended and Normal Bowel Sounds
Skin: Warm and Dry
Neuro: Awake, Alert, Oriented, AO x 3 and Other (Bilateral upper extremities-handgrip+, strength 4/5, sensations intact. Bilateral lower extremities-strength 1/5, sensations negative, DTRs negative)
Psych: Calm
--- NOTE | 2024-05-04 08:41 | PHA.VAN.IN ---
Assessment
- Assessment
Renal Function: Appears similar to baseline
Maximum Temperature: 102.9 F - 05/03 16:21
Concomitant Antimicrobials: ceftriaxone
AUC Dosing Plan
- Dosing Variables
Dosing Weight (kg): 105
Dosing CrCl (ml/min): 125
Vd coefficient (L/kg): 0.6
- Empiric Dosing
Initial / Loading Dose: 2000mg - 05/03 18:09 plus 1250mg x1 this AM
Maintenance Regimen: Vanc 1750mg Q12H starting 05/04 1800
Estimated AUC (mcg*h/mL): 569
Estimated Peak (mcg*h/mL): 38.2
Estimated Trough (mcg/ml): 13
Estimated Half Life (H): 6.4
- Monitoring
No levels ordered at this time: consider levels in next few days
Pharmacokinetics Vancomycin I
- -
Patient Age: 39
Patient Sex: Female
Vancomycin Day #: 1
Indication: Bobbin Collector Infection
Requesting Provider: Dr. Rouse
Pertinent Antimicrobial Allergies:
no pertinent antibiotic allergies
Height / Weight:
Height 5 ft 6 in
Actual Weight 105.2 kg
Pertinent Past Medical History: BMI ~37, MS
- Vital Signs / Lab Results
Temp Pulse Resp BP Pulse Ox
98.9 F 74 16 133/81 95
05/04/24 03:40 05/04/24 08:00 05/04/24 08:00 05/04/24 08:00 05/04/24 08:00
Lab Results - Hematology
05/03/24 05/04/24
16:27 05:32
WBC 7.9 5.9
Lab Results - Chemistry
05/03/24 05/04/24
16:28 05:32
BUN 18 H 10
Creatinine 0.7 0.7
Estimated Creat Clear > 125 > 125
Albumin 4.5 3.9
05/03/24 05/03/24
16:27 20:30
Lactic Acid 1.9 Cancelled
Lab Results - Urine
05/03/24
16:42
Urine Nitrite (Reflex) Negative
Leukocyte Esterase Rfl Negative
Urine WBC (Reflex) 0-2
Ur Squamous Epith Cells 3-5
[2024-05-04] MEDS: ZOLOFT 50 MG PO (09:51)
[2024-05-04] MEDS: PREVACID 30 MG PO (09:52)
--- NOTE | 2024-05-04 09:57 | CON.ID ---
Consultation
-
Date/Time Consultation Requested: 05/03/24 23:47
Date/Time Consultation Performed: 05/04/24 9:58
Requesting Provider: Dr Rouse
Performing Provider: Dr Ashford
Reason for Consultation: Weakness, COVID-19
Chief Complaint / Past History
Chief Complaint
weakness/neck pain
History of Present Illness
Ms Corbin is a 39 year old female with MS (diagnosed 1 year ago, residual R sided numbness) who presented here 05/03 for weakness, neck and back pain. Woke up 3:30 with sharp pain in the R neck radiating to the back, reports she couldnt move the
arms or legs but was able to sit upright. No fevers, chills, cough. She has recently had dental infection of the R upper incisor and has been on three courses first augmentin then two courses of amoxicillin, last course included a medrol dose
pack, last dose was the day before arrival. Minimal time outside and no known tick bites. Pets (cat, rabit, turtles) all stay in doors. Reports shes never had a covid vaccine or been known to have covid itself. Currently spends minimal time
outside of her home but did [place] - sat in a chair not on the grass.
Since arrival here tmax 102.9 orally, bp stable, saturating 95% on room air, wbc now 5.9, hgb 12.4, plt 298, on arrival L shift and lymphoicytopenia noted, esr 19, cr 0.7, t bili 0.2, ast 18, alt 18, alk pohs 100, crp 25, hcg neg, a covid ag is
positive, a lyme serology was sent. MRI c spine with contrast: no demyelination, MRI brain w/w/o contrast, supratentorial and infratential hyperintensities, a sinlge blood culture was sent, patient is currently on vancomycin and ceftriaxone, she is
planned for lumbar puncture, ID is consulted for assistance with management.
Past History
Additional Past Medical History:
Multiple Sclerosis
Migraine Headaches
class ii obeesity
Additional Past Surgical History:
BRAIN
Allergy History:
diphenhydramine [From Benadryl] Allergy (Verified 05/03/24 16:20)
Hives
Tetanus Vaccines and Toxoid Allergy (Verified 05/03/24 16:20)
Unknown
Medications Reviewed: Yes
Social History
Tobacco: Former Smoker (20 pack years)
Alcohol: None
Drug: None
Family History
Family History: Not Pertinent
Review of Systems
Review of Systems
General: Fever; Negative Chills
All systems: All other systems were reviewed and were negative
Vital Signs
Temp Pulse Resp BP Pulse Ox
98.7 F 74 16 133/81 95
05/04/24 08:47 05/04/24 08:00 05/04/24 08:00 05/04/24 08:00 05/04/24 08:00
Physical Exam
Physical Exam
Constitutional: No Acute Distress and Comfortable
Cardiovascular: Regular Rate and S1/S2; Negative Murmur or Rub
Pulmonary: Clear, Symmetric and Non Labored; Negative Wheezes, Rales or Rhonchi
Gastrointestinal: Soft, Non Tender, Non Distended and Normal Bowel Sounds
Extremities: Other (4+ strength hands/wrists (improvement per patient), 1+ strength feet, distal/proximal legs )
Skin: Warm and Dry; Negative Rash or Jaundice
Neurological: Awake
Psychological: Calm
Lab / Diagnostic Study Results
05/04/24 05:32
05/04/24 05:32
Abs Immat Gran (auto) 0.1 10^3/uL (0-0.05) H 05/03/24 16:27
Absolute Neuts (auto) 6.7 10^3/uL (1.4-6.5) H 05/03/24 16:27
Absolute Lymphs (auto) 0.4 10^3/uL (1.2-3.4) L 05/03/24 16:27
Absolute Monos (auto) 0.6 10^3/uL (0.1-0.6) 05/03/24 16:27
Absolute Basos (auto) 0.0 10^3/uL (0-0.2) 05/03/24 16:27
Immature Gran % 0.6 % (0-0.5) H 05/03/24 16:27
Neutrophils % 85.6 % (42.2-75.2) H 05/03/24 16:27
Lymphocytes % 5.2 % (20.5-51.1) L 05/03/24 16:27
Monocytes % 7.2 % (1.7-9.3) 05/03/24 16:27
Eosinophils % 0.9 % (0-6) 05/03/24 16:27
Basophils % 0.5 % (0-2) 05/03/24 16:27
ESR Cancelled 05/03/24 16:37
Lactic Acid Cancelled 05/03/24 20:30
C-Reactive Protein Cancelled 05/03/24 16:37
Ur Squamous Epith Cells 3-5 /LPF (Few) 05/03/24 16:42
Microbiology Results
Micro:
05/03/24 16:28 Blood Culture - Pending
Blood/Venous
Assessment / Plan
Covid Infection - Mild Pulmonary symptoms,
MS - recently on steroids outpatient
Class II Obesity
- covid infection itself can cause a number of neurological symptoms including transverse myelitis, encephalitis - appreciate neurology input
- MRI w and w/o contrast brain and C spine without new lesions
- reports no exposures to ticks, minimal time outside and pets are all indoors
- LP per neurology
- no further blood cultures needed at this time in my opinion
- lyme serology was sent by ER and will need to be interpreted in context of any prior known infections
- confirms her medication list is complete
- stop vanc/ceftriaxone - discussed with Dr Pinto, neurology, via tiger text
- no objection to steroids - management per neurology
- I have started paxlovid - plan 5 day course - could be extended if
[2024-05-04] MEDS: PAXLOVID 2X150 MG-100 MG DOSE PACK 1 DOSE PO ×2 (11:40→20:00)
[2024-05-04 14:45] LABS: Lyme Antibody Screen, EIA Negative (Negative)
[2024-05-04 15:40] LABS: INR 1.01; PT 13.1 Sec (11.4-14.6)
--- NOTE | 2024-05-04 16:06 | W.PN.NEURO.1 ---
Today's Communication / Plan
-
Will follow MRI of thoracic and lumbar spine results
Physical therapy evaluations
We will follow lumbar puncture results
Would continue patient's usual diroximel fumarate
No indication at this time the patient would benefit from high-dose steroids to treat MS exacerbation, as there is no evidence of same at this time
May continue use of Galcanezumab as outpatient for treatment of headache
Continue treatment of COVID as is appropriate
Neuro Assessment/Plan
Assessment
Abrupt onset right neck pain radiating down the back with subsequent inability to move arms or legs.
The patient previously has been diagnosed as having multiple sclerosis and migraine. Since hospitalization, the patient has been diagnosed with COVID-19.
Neuroimaging, as reviewed by myself, does not demonstrate lesions to answer the abnormalities that the patient has experienced. It is unlikely that thoracic or lumbar spine imaging will be of diagnostic assistance.
Differential diagnosis for symptomatology includes somatization disorder
Plan
Will follow MRI of thoracic and lumbar spine results
Physical therapy evaluations
We will follow lumbar puncture results
Would continue patient's usual diroximel fumarate
No indication at this time the patient would benefit from high-dose steroids to treat MS exacerbation, as there is no evidence of same at this time
May continue use of Galcanezumab as outpatient for treatment of headache
Continue treatment of COVID as is appropriate
Will follow pending results
Subjective/Objective
Subjective Data
Date of Service: May 04, 2024
Objective Data
Vital Signs
Temp Pulse Resp BP Pulse Ox
37.3 C 74 16 133/81 95
05/04/24 11:31 05/04/24 08:00 05/04/24 08:00 05/04/24 08:00 05/04/24 08:00
Lab Results
05/04/24 05:32
05/04/24 05:32
PT 13.1 Sec (11.4-14.6) 05/04/24 15:08
INR 1.01 05/04/24 15:08
Sodium 140 mmol/L (135-145) 05/04/24 05:32
Potassium 3.7 mmol/L (3.5-5.1) 05/04/24 05:32
BUN 10 mg/dl (7-17) 05/04/24 05:32
Glucose 105 mg/dl (70-99) H 05/04/24 05:32
Calcium 8.6 mg/dl (8.4-10.2) 05/04/24 05:32
Patient Allergies
diphenhydramine [From Benadryl] Allergy (Verified 05/03/24 16:20)
Hives
Tetanus Vaccines and Toxoid Allergy (Verified 05/03/24 16:20)
Unknown
Data Reviewed
-
MRI Head: Report Reviewed and Image Reviewed
MRI Cervical Spine: Report Reviewed
Labs: Report Reviewed
Reviewed with: Physician
Old Records: Summarized
--- NOTE | 2024-05-04 18:20 | PTCARENOTE ---
Pt rec'd from second shift supervisor, plan discussed with care team. Pt send for Lumbar spine MRI this afternoon. Pt continues with numbness/lack of sensation and movement from her waist down, with the exception of being able to wiggle her right toes. she is
able to flex her wrists and use her fingers, this afternoon was feeding herself by propping her arms against her bedside table for leverage. Pt's mother at bedside, assisting in care. Pt and mother wondering about transfer to [facility] or tertiary care,
this RN unable to answer-forwarded this question to attending and residents. Plan depending on neurology findings at this time. Pt also asking about her home MS meds. Will have family bring in to be barcoded and given. LP by IR pending at this time.
VSS, meds and assessment as documented in worklist. Safe environment maintained.
[2024-05-05] VITALS (13 sets, daily range): BP systolic 92–137; BP diastolic 52–91; BMI 37.7
[2024-05-05] MEDS: ZOLOFT 50 MG PO (08:07)
[2024-05-05] MEDS: PROTONIX 40 MG PO (08:07)
[2024-05-05 08:22] LABS: Hematocrit 39.8 % (37.0-47.0); Hemoglobin 13.4 g/dL (12.0-16.0); Mean Corp Hgb Conc. 33.7 g/dL (33.0-37.0); Mean Corpuscular Hgb 26.7 pg (27.0-31.0); Mean Corpuscular Volume 79.4 fL (81.0-99.0); Mean Platelet Volume 9.5 fL (7.4-10.4); Platelet Count 300 10^3/uL (130-400); Red Blood Cell Count 5.01 10^6/uL (4.20-5.40); Red Cell Dist. Width 14.2 % (11.5-14.5); White Blood Cell Count 3.4 10^3/uL (4.8-10.8)
[2024-05-05 08:47] LABS: ALT (SGPT) 20 U/L (0-35); AST (SGOT) 20 U/L (14-36); Alkaline Phosphatase 101 U/L (38-126); Blood Urea Nitrogen 10 mg/dl (7-17); Calcium 8.9 mg/dl (8.4-10.2); Carbon Dioxide 27 mmol/L (22-30); Chloride 102 mmol/L (98-107); Estimated Creatinine Clearance > 125 ml/min; Glucose 111 mg/dl (70-99); Potassium 3.9 mmol/L (3.5-5.1); Sodium 139 mmol/L (135-145); Total Bilirubin 0.3 mg/dl (0.2-1.3); Total Protein 6.7 g/dl (6.3-8.2); eGFR > 60.00
--- NOTE | 2024-05-05 08:59 | W.PN.ID1 ---
Date of Service
Date of Service: May 05, 2024
Today's Communication
discussed with IM service and neurology
await LP
continue paxlovid
may start steroids pending course
Assessment / Plan
Covid Infection - Mild Pulmonary symptoms
MS
Immunosuppression - vumerity ass with a number of opportunistic infections
Class II Obesity
- strenght is improving
- covid infection itself can cause a number of neurological syndromes including polyneuropathy, encephalitis, less likely - transverse myelitis - would be my leading etiology
- treatment is typically high dose steroids - decisions pending LP
[facility]
- MRI w and w/o contrast brain, C spine, T spine, L spine without new lesions; MRI T and L spine pending
- [place] serologies on CSF and plasma - while typically not outside did spend a long time at an outdoor concert
- lyme serology negative, PCR on the CSF pending
- hep A/B/C serologies
- cryptococcus a reasonable consideration given vumerity - ag on csf is pending is much higher sensitivity than the biofire panel
- syphilis serology sent
- meningitis panel includes enterovirus, CMV, HSV, VZV
- LP pending
- c/w paxlovid - tentatively plan 5 day course - might consider extending it pending above workup and course
Chief Complaint
-: Other (COVID)
Subjective / Review of Systems
afebrile
BP stable
continues with 97% sat on room air
improved strength of the right forearm and bilateral ankles
Vital Signs / Physical Exam
Vital Signs
Vital Signs
Temp Pulse Resp BP Pulse Ox
98.5 F 60 14 131/86 97
05/05/24 03:30 05/05/24 06:00 05/05/24 06:00 05/05/24 04:01 05/05/24 06:00
Physical Exam
Constitutional: No Acute Distress and Chronically Ill
Cardiovascular: Regular Rate and S1/S2; Negative Murmur or Rub
Pulmonary: Clear and Symmetric; Negative Wheezes or Rales
Gastrointestinal: Soft, Non Tender, Non Distended and Normal Bowel Sounds
Skin: Warm and Dry; Negative Rash or Jaundice
Neurological: Other (4+ strength of the r forearm and bilateral wrists; 4+ strenght bilateral ankles in flexion; )
Objective Data
Lab Data
Lab Results
05/05/24 08:04
05/05/24 08:03
ESR Cancelled 05/03/24 16:37
PT 13.1 Sec (11.4-14.6) 05/04/24 15:08
INR 1.01 05/04/24 15:08
Estimated Creat Clear > 125 ml/min 05/05/24 08:03
Lactic Acid Cancelled 05/03/24 20:30
Total Bilirubin 0.3 mg/dl (0.2-1.3) 05/05/24 08:03
AST 20 U/L (14-36) 05/05/24 08:03
ALT 20 U/L (0-35) 05/05/24 08:03
Alkaline Phosphatase 101 U/L (38-126) 05/05/24 08:03
C-Reactive Protein Cancelled 05/03/24 16:37
Most recent labs reviewed as above in addition
note new mild leukopenia
no diff done today and not needed from my perspective
Micro Results:
05/03/24 16:28 Blood Culture - Preliminary
Blood/Venous No Growth in 24 hours- Final report to follow
[2024-05-05] MEDS: PAXLOVID 2X150 MG-100 MG DOSE PACK 1 DOSE PO ×2 (10:34→20:36)
--- NOTE | 2024-05-05 11:43 | PTCARENOTE ---
Assumed care of patient at beginning of this shift from previous RN. Morning labs drawn and sent as ordered by resident. Patient's mom brought in her MS meds but was told by physician that those meds will not be ordered yet. Patient to go for LP
with serology orders. Reviewed lab orders with chemistry dept and was told that a serum lymes was received 06/03; there is a serum [place] to be drawn. Dr Ashford made aware. Patient states she still has no feeling to her legs, cannot feel touch
or pressure. She was able to move R foot slightly but could not move L leg at all. L arm very weak; R arm with weakness but able to move to take pills and feed herself. Await LP today.
--- NOTE | 2024-05-05 13:38 | W.PN.HOSP.TC ---
Addendum entered and electronically signed by Jim Gonzalez MD 05/06/24 12:04:
Bilateral lower extremity weakness numbness and COVID-19 asymptomatic not requiring oxygen. Known history of MS immunocompromise outpatient steroids. Start Paxlovid. No antibiotics indicated. ID following.
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 Will attempt to call [facility] her primary neurologist with [facility].
-Discussed with ID, may need high dose steroids
-PT/OT rec AIR
-Physiatry consulted.
-Lyme negative
MS.
Hold vumerity right now
Original Note:
Today's Communication/Plan
-
continue paxlovid for the full course
Assessment / Plan
Assessment / Plan
39-year-old female, with past medical history of MS (diagnosed 1 year ago), migraines presented with sudden onset lower extremity weakness and loss of sensation, neck stiffness. Patient was febrile, Tmax at 1020.9 on presentation, elevated CRP at
25.
Impression
Lower extremity weakness
COVID-positive
Multiple sclerosis
Migraine
Anxiety/depression
Plan
#Lower extremity weakness
Etiology might be secondary to MS flare versus transverse myelitis versus Guillian barre versus COVID infection resulting in encephalitis.
Acute onset
Patient is able to wiggle her toes on the right lower extremity today
Patient had a recent dental infection for which she completed a course of antibiotics/Medrol Dosepak
Brain MRI�no new demyelinating lesions, cervical spine MRI�no evidence of demyelinating disease, no foraminal/spinal canal stenosis.
Lumbar spine MRI�
Infectious Disease (05/05)- discontinued vancomycin/ceftriaxone, continue paxlovid,
IR consulted-plan on LP today (awaiting results)
Recommended for the patient to hold off on Vumerity until results of the lumbar puncture
Awaiting blood cultures
Neurology consult
# COVID positive
Started on 5-day course of Paxlovid-as per ID through 05/08/2024
Currently on room air
# Multiple sclerosis
No new demyelinating lesions
Residual weakness from prior
# Migraine
Started on Emgality 1 week ago
#Anxiety/depression
Continue sertraline
DVT prophylaxis�SCDs
Anticipated Discharge: 24 - 48 hours
Subjective/Interval History
-
Date of Service: May 05, 2024
Patient was in a very agitated mood today.
Objective Data
-
Labs:
Laboratory Results
05/05/24 05/05/24
08:03 08:04
WBC 3.4 L
Hgb 13.4
Hct 39.8
Plt Count 300
Sodium 139
Potassium 3.9
Chloride 102
Carbon Dioxide 27
BUN 10
Creatinine 0.6
Glucose 111 H
Calcium 8.9
Total Bilirubin 0.3
AST 20
ALT 20
Alkaline Phosphatase 101
Vital Signs:
Vital Signs
Temp Pulse Resp BP Pulse Ox
98.5 F 76 14 127/86 98
05/05/24 03:30 05/05/24 10:00 05/05/24 10:00 05/05/24 10:00 05/05/24 10:00
I&O
05/04/24 05/05/24 05/06/24
06:59 06:59 06:59
Intake Total 555 / 555 480 / 480
Output Total 350 / 350 2850 / 2850
Balance 205 / 205 -2370 / -2370
Review of Systems
-
History Source: Patient
All other systems: Reviewed and negative
Physical Exam
-
General: No Apparent Distress
HEENT: Normocephalic and Atraumatic
Respiratory: Clear to Auscultation, Wheezes, Rales, Rhonchi and Non Labored Respirations
Cardiac: S1/S2
GI: Soft, Nontender, Nondistended and Normal Bowel Sounds
Skin: Warm and Dry
Neuro: Awake, Alert, Oriented, AO x 3 and Other ((Bilateral upper extremities-handgrip+, strength 4/5, sensations intact. Bilateral lower extremities-strength 1/5, sensations negative, DTRs negative))
Psych: Agitated
--- NOTE | 2024-05-05 14:29 | W.PN.UPDATE ---
Update Note
Progress Note Update
Bilateral lower extremity weakness numbness and COVID-19 asymptomatic not requiring oxygen. Known history of MS immunocompromise outpatient steroids. Start Paxlovid. No antibiotics indicated. ID following.
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 Will attempt to call [facility] her primary neurologist with [facility].
-Discussed with ID, may need high dose steroids
-PT/OT rec AIR
-Physiatry consulted.
-Lyme negative
MS.
Hold vumerity right now
--- NOTE | 2024-05-05 14:48 | CM ---
CM spoke with pt on phone ext [phone], COVID+
Pt resides with her mother, dtr/19 y/o and nieces in a 2SH with CONNIE Ignacio, 2 CELIO and full flight to 2nd floor
Pt notes she is typically independent with her ADLs with use of a WW as needed
On bad days, her family assists her, she has a WW, WC, commode and shower chair at home
Pt insured through [employer] with Rx coverage
PCP- Heidi martins
Rx- [facility] Ignacio
PT/OT following with acute rehab recommendations
Pt declined and plans to return home with VN and family support
Open to any VN provider that services her zip code
Notes family available to assist her at home as well as friends
CM will continue to follow for dc planning
Discharge Disposition- acute rehab refusal, home with VN
--- NOTE | 2024-05-05 14:54 | PTCARENOTE ---
Patient c/o headache, stating tylenol has not worked for her. [place] text sent to both Dr Gonzalez and Dr Aparicio at 11:58. Patient called again requesting something other than tylenol. [place] text sent again at 14:45 as no other med was order. Await
response.
Patient is to go for LP this afternoon; no further update received. [place] text sent to Dr Ashford, as per her request.
[2024-05-05] MEDS: IMITREX 50 MG PO (15:12)
--- NOTE | 2024-05-05 16:13 | W.PN.UPDATE ---
Update Note
Progress Note Update
Reviewed imaging; has had MRI brain, C, T and Lspines; no clear evidence of MS flare/new demyelinating lesions. This event may be a pseudo-exacerbation from fever d/t COVID.
Possible transverse myelitis (although no evidence on MRI), polyneuropathy due to COVID also raised as possible alternative dx.
Getting an LP today.
Vumerity on hold.
Need records from her outpatient neurologist.
Management of COVID per ID.
Will c/t follow.
--- NOTE | 2024-05-05 16:45 | PTCARENOTE ---
Pt. retrieved from IMU and transported to IR via bed, right into procedure room. Lumbar puncture done, pt. transported back to IMU via bed. No complaints of pain.
[2024-05-05 16:58] LABS: CSF Clarity Clear; CSF Color Colorless; CSF Tube # 4; Red Cell Count/CSF 0 mm^3; White Cell Count/CSF 1 mm^3 (0-5)
[2024-05-05 17:02] LABS: Spinal Fluid Glucose 63 mg/dl (40-70); Spinal Fluid Protein 45 mg/dl (12-60)
--- NOTE | 2024-05-05 18:51 | PTCARENOTE ---
Patient post LP; bandaid remains intact, no drainage noted. Patient on activity restrictions x2hrs; currently completed. No c/o pain or dizziness.
[2024-05-05 20:15] LABS: CSF Clarity Clear; CSF Color Colorless; CSF Tube # 2; Red Cell Count/CSF 0 mm^3; White Cell Count/CSF 1 mm^3 (0-5)
[2024-05-06] VITALS (12 sets, daily range): BP systolic 99–126; BP diastolic 63–94; BMI 36.8
--- NOTE | 2024-05-06 04:47 | PTCARENOTE ---
No acute changes overnight; Unable to move LLE. RLE able to move foot/toes. Bilateral UE remain weak, denture waxer and fine motor skills improving. Able to hold arms up for several seconds. VSS. Tele showing NSR. Reports [place] feels more manageable after
receiving migraine med. Voiding via purewick. Assisted with repositioning in bed. LP site intact. SCDs on. Respiratory precautions in place. Call wheat within reach.
[2024-05-06] MEDS: ZOLOFT 50 MG PO (08:11)
[2024-05-06] MEDS: PROTONIX 40 MG PO (08:11)
[2024-05-06] MEDS: PAXLOVID 2X150 MG-100 MG DOSE PACK 1 DOSE PO ×2 (08:11→21:49)
--- NOTE | 2024-05-06 08:52 | W.PN.ID1 ---
Date of Service
Date of Service: May 06, 2024
Today's Communication
CSF cell count, protein, glucose normal
no definitive etiology found - covid suspected
- c/w paxlovid - extended to 10 day course
- start high dose steroids
- consider early PMR consultation
Assessment / Plan
Polyneuropathy vs encephalitis vs transverse myelitis
Covid Infection - Mild Pulmonary symptoms
MS
Immunosuppression - vumerity assc with a number of opportunistic infections
Class II Obesity
- strength is improving in the bilateral upper extremities but no real change in the lower extremities
- covid infection itself can cause a number of neurological syndromes including polyneuropathy, encephalitis, less likely - transverse myelitis given no active lesions on MRI. 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
- start high dose steroids - methyl pred 500 mg IV Q 24 hours x5 days - shortner if significant improvement or alternative diagnosis that isnt steroid responsive
- c/w paxlovid extend to 10 days
- add PPI
- add multivitamin
- reviewed potential SE of high dose steroids in detail with patient
- [facility] - neurology in agreement
- MRI w and w/o contrast brain, C spine, T spine, L spine without new lesions, there are possible old lesions in the brain
- LP - normal CSF cell count, protein, glucose
- meningitis panel including enterovirus, CMV, HSV, VZV - negative
- [place] serologies on CSF and plasma - while typically not outside did spend a long time at an outdoor concert
- lyme serology negative, PCR on the CSF pending - lower concern though not ruled out
- hep A/B/C serologies
- cryptococcus a reasonable consideration given vumerity - ag on csf is pending and is much higher sensitivity than the biofire panel, biofire panel was negative. no active lesions on the cxr or mri
- syphilis serology sent - reports shes had STI panel including HIV screen prior after her last new sexual partner, never had an STI
- consider early PMR consultation
Chief Complaint
-: Other (COVID, polyneuropathy)
Subjective / Review of Systems
afebrile
lp done last night
improving arm strength
Vital Signs / Physical Exam
Vital Signs
Vital Signs
Temp Pulse Resp BP Pulse Ox
98.2 F 67 10 115/94 95
05/06/24 04:46 05/06/24 06:00 05/06/24 06:00 05/06/24 06:00 05/06/24 06:00
Physical Exam
Constitutional: No Acute Distress
Cardiovascular: Regular Rate and S1/S2; Negative Murmur or Rub
Pulmonary: Clear and Symmetric; Negative Wheezes or Rales
Gastrointestinal: Soft, Non Tender, Non Distended and Normal Bowel Sounds
Skin: Warm and Dry; Negative Rash or Jaundice
Neurological: Other (4+ strength now entire right arm, 4+ strength distal L arm, proximal 2+ strenght; 1+ strength bilateral hips and legs)
Objective Data
Lab Data
ESR Cancelled 05/03/24 16:37
PT 13.1 Sec (11.4-14.6) 05/04/24 15:08
INR 1.01 05/04/24 15:08
Estimated Creat Clear > 125 ml/min 05/05/24 08:03
Lactic Acid Cancelled 05/03/24 20:30
Total Bilirubin 0.3 mg/dl (0.2-1.3) 05/05/24 08:03
AST 20 U/L (14-36) 05/05/24 08:03
ALT 20 U/L (0-35) 05/05/24 08:03
Alkaline Phosphatase 101 U/L (38-126) 05/05/24 08:03
C-Reactive Protein Cancelled 05/03/24 16:37
Most recent labs reviewed.
CSF clear
1 wbc/hpf
0 rbc
glucose 63
protein 45
meningitis panel (including HSV, VZV, CMV, enterovirus negative
Micro Results:
05/03/24 16:03 CSF Culture - Pending
Csf Gram Stain - Preliminary
05/05/24 16:03 Meningitis/Encephalitis Panel (PCR) - Final
Csf
05/03/24 16:28 Blood Culture - Preliminary
Blood/Venous No Growth in 48 hours- Final report to follow
Care Review
Plan reviewed with: Physician (Dr Gonzalez and Dr Degroot - steroids, etiology, pmr)
[2024-05-06 11:24] LABS: ALT (SGPT) 19 U/L (0-35); AST (SGOT) 18 U/L (14-36); Albumin 4.2 g/dl (3.5-5.0); Alkaline Phosphatase 86 U/L (38-126); Blood Urea Nitrogen 14 mg/dl (7-17); Calcium 9.5 mg/dl (8.4-10.2); Carbon Dioxide 25 mmol/L (22-30); Chloride 101 mmol/L (98-107); Estimated Creatinine Clearance > 125 ml/min; Glucose 108 mg/dl (70-99); Sodium 139 mmol/L (135-145); Total Bilirubin 0.3 mg/dl (0.2-1.3); Total Protein 7.1 g/dl (6.3-8.2); eGFR > 60.00
[2024-05-06 11:41] LABS: % Basophils 0.5 % (0-2); % Eosinophils 1.1 % (0-6); % Immature Granulocytes 0.7 % (0-0.5); % Lymphocytes 29.5 % (20.5-51.1); % Monocytes 11.5 % (1.7-9.3); % Neutrophils 56.7 % (42.2-75.2); Absolute Eosinophils 0.1 10^3/uL (0-0.7); Absolute Lymphocytes 1.3 10^3/uL (1.2-3.4); Absolute Monocytes 0.5 10^3/uL (0.1-0.6); Absolute Neutrophils 2.5 10^3/uL (1.4-6.5); Hematocrit 40.8 % (37.0-47.0); Hemoglobin 13.9 g/dL (12.0-16.0); Mean Corp Hgb Conc. 34.1 g/dL (33.0-37.0); Mean Corpuscular Hgb 26.5 pg (27.0-31.0); Mean Corpuscular Volume 77.9 fL (81.0-99.0); Mean Platelet Volume 9.7 fL (7.4-10.4); Nucleated Red Blood Cells % 0 %; Platelet Count 355 10^3/uL (130-400); Red Blood Cell Count 5.24 10^6/uL (4.20-5.40); White Blood Cell Count 4.4 10^3/uL (4.8-10.8)
[2024-05-06] MEDS: SOLU-MEDROL 108 MG IV (11:55)
[2024-05-06] MEDS: THERAGRAN 1 TABLET PO (11:55)
--- NOTE | 2024-05-06 16:14 | W.PN.UPDATE ---
Update Note
Progress Note Update
Bilateral lower extremity weakness numbness and COVID-19 asymptomatic not requiring oxygen. Known history of MS immunocompromise outpatient steroids. Start Paxlovid. No antibiotics indicated. ID following.
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
-Discussed with ID
-Start High dose steroids
-PT/OT rec AIR
-Physiatry consulted
-Lyme negative
-LP without evidence bacterial/aseptic findings
MS.
-Hold vumerity right now
--- NOTE | 2024-05-06 17:32 | CM ---
Patient with Hx MS with Dx bilateal LE weakness & numbness, Covid +. Room air. Receiving IV Steroids, Paxlovid. PT Eval; dependent for bed mobility, recommend acute rehab. OT Eval; dependent for LE self care, max assist of 2 bed mobility,
recommend skilled vs acute rehab. Physiatry Eval pending.
Spoke with [facility] Liaison; discussed patient's status. Referral placed.
CM continuing to follow.
Plan follow up after seen by Physiatry.
--- NOTE | 2024-05-06 17:33 | W.PN.HOSP.TC ---
Addendum entered and electronically signed by Jim Gonzalez MD 05/07/24 14:13:
Bilateral lower extremity weakness numbness and COVID-19 asymptomatic not requiring oxygen. Known history of MS immunocompromise outpatient steroids. Start Paxlovid. No antibiotics indicated. ID following.
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
-Discussed with ID
-Start High dose steroids
-PT/OT rec AIR
-Physiatry consulted
-Lyme negative
-LP without evidence bacterial/aseptic findings
MS.
-Hold vumerity right now
Original Note:
Today's Communication/Plan
-
Continue patient on current medication
Follow-up with PMNR, infectious disease, and neurology
Assessment / Plan
Assessment / Plan
39-year-old female, with past medical history of MS (diagnosed 1 year ago), migraines presented with sudden onset lower extremity weakness and loss of sensation, neck stiffness. Patient was febrile, Tmax at 1020.9 on presentation, elevated CRP at
25.
Impression
Lower extremity weakness
COVID-positive
Multiple sclerosis
Migraine
Anxiety/depression
Plan
#Covid Polyneuropathy
- consulted with Neurology
- ID consulted , started high dose steroids and pantoprazole IV 40 mg BID
- PMN&R consulted for rehab.
- Lumbar puncture (05/05) negative
#Lower extremity weakness
Etiology might be secondary to MS flare versus transverse myelitis versus Guillian barre versus COVID infection resulting in encephalitis.
Acute onset
Patient is able to wiggle her toes on the right lower extremity today
Patient had a recent dental infection for which she completed a course of antibiotics/Medrol Dosepak
Brain MRI�no new demyelinating lesions, cervical spine MRI�no evidence of demyelinating disease, no foraminal/spinal canal stenosis.
Lumbar spine MRI�
Infectious Disease (05/05)- discontinued vancomycin/ceftriaxone, continue paxlovid,
IR consulted-plan on LP today (awaiting results)
Recommended for the patient to hold off on Vumerity until results of the lumbar puncture
Awaiting blood cultures
talked to dr. luis patel whois patients neurologist regarding her previous MS history
# COVID positive
Started on 5-day course of Paxlovid-as per ID through 05/08/2024
Currently on room air
# Multiple sclerosis
No new demyelinating lesions
Residual weakness from prior
# Migraine
Started on Emgality 1 week ago
#Anxiety/depression
Continue sertraline
DVT prophylaxis�SCDs
Anticipated Discharge: 24 - 48 hours
Subjective/Interval History
-
Date of Service: May 06, 2024
Patient has no acute complaints
Objective Data
-
Labs:
Laboratory Results
05/06/24
10:54
WBC 4.4 L
Hgb 13.9
Hct 40.8
Plt Count 355
Sodium 139
Potassium 4.0
Chloride 101
Carbon Dioxide 25
BUN 14
Creatinine 0.7
Glucose 108 H
Calcium 9.5
Total Bilirubin 0.3
AST 18
ALT 19
Alkaline Phosphatase 86
Vital Signs:
Vital Signs
Temp Pulse Resp BP Pulse Ox
98.2 F 69 17 105/78 95
05/06/24 04:46 05/06/24 14:00 05/06/24 14:00 05/06/24 14:00 05/06/24 14:00
I&O
05/05/24 05/06/24 05/07/24
06:59 06:59 06:59
Intake Total 480 / 480 240 / 240 240 / 240
Output Total 2850 / 2850 850 / 850 100 / 100
Balance -2370 / -2370 -610 / -610 140 / 140
Review of Systems
-
History Source: Patient
All other systems: Reviewed and negative
Physical Exam
-
General: Well Developed, Well Nourished, No Apparent Distress and Comfortable
Respiratory: Clear to Auscultation
Cardiac: Regular Rhythm and S1/S2
Skin: Warm and Dry
Neuro: Other ((4+ strength now entire right arm, 4+ strength distal L arm, proximal 2+ strenght; 1+ strength bilateral hips and legs))
Psych: Calm
Data Reviewed
-
Labs: Labs Reviewed by me
--- NOTE | 2024-05-06 19:25 | W.PN.NEURO.1 ---
Today's Communication / Plan
-
on ivsm
Neuro Assessment/Plan
Assessment
Abrupt onset right neck pain radiating down the back with subsequent inability to move arms or legs.
The patient previously has been diagnosed as having multiple sclerosis and migraine. Since hospitalization, the patient has been diagnosed with COVID-19.
she has had extensive neuroimaging including MRI brain, C/T/L spine; no new demyelinating lesions; no SC lesions to explain symptoms.
On exam she reports no sensation in BLE and 0/5 muscle strength beyond moving R toes spontaneously--likely at least some component of giveaway weakness on exam.
Differential diagnosis for symptomatology includes somatization disorder vs MS pseudo-exacerbation due to COVID; polyneuropathy due to COVID also raised as possible alternative dx.
CSF results thus far have been unrevealing.
Plan
Reviewed imaging; has had MRI brain, C, T and Lspines; no clear evidence of MS flare/new demyelinating lesions. Reviewed results with patient.
f/u remainder of CSF results
started on IVSM 500mg daily per ID.
Vumerity on hold.
Need records from her outpatient neurologist at [facility].
Management of COVID per ID.
Physical therapy evaluations
Will follow
Subjective/Objective
Subjective Data
Date of Service: May 06, 2024
started steroids today, no improvement in symptms thus far
Objective Data
Vital Signs
Temp Pulse Resp BP Pulse Ox
98.0 F 86 19 99/63 96
05/06/24 07:10 05/06/24 18:00 05/06/24 18:00 05/06/24 18:00 05/06/24 18:00
Lab Results
05/06/24 10:54
05/06/24 10:54
PT 13.1 Sec (11.4-14.6) 05/04/24 15:08
INR 1.01 05/04/24 15:08
Sodium 139 mmol/L (135-145) 05/06/24 10:54
Potassium 4.0 mmol/L (3.5-5.1) 05/06/24 10:54
BUN 14 mg/dl (7-17) 05/06/24 10:54
Glucose 108 mg/dl (70-99) H 05/06/24 10:54
Calcium 9.5 mg/dl (8.4-10.2) 05/06/24 10:54
Patient Allergies
diphenhydramine [From Benadryl] Allergy (Verified 05/03/24 16:20)
Hives
Tetanus Vaccines and Toxoid Allergy (Verified 05/03/24 16:20)
Unknown
Physical Exam
-
General: Well Developed, Well Nourished and No Apparent Distress
Extended Neurological Exam
Mood & Affect: Mood Unremarkable and Affect Unremarkable
Attention Span & Concentration: Alert and Interactive
Memory: Unremarkable
Tremor: Hand Tremor Absent and Head Tremor Absent
Speech: Quality Unremarkable, Quantity Unremarkable and Rate of Production Unremarkable
Cranial Nerve II: Left Eye: Pupillary Reactivity Unremarkable and Pupillary Size Unremarkable
Cranial Nerve II: Right Eye: Pupillary Reactivity Unremarkable and Pupillary Size Unremarkable
Cranial Nerves III, IV, : Extraocular Movement: Extraocular Movement Full in all Directions
Cranial Nerve V: Facial Sensation: Facial Sensation Unremarkable to Cold
Cranial Nerve VII: Facial Symmetry: Normal Facial Symmetry
Cranial Nerve VIII: Hearing: Unremarkable Hearing to Normal Conversational Volume
Cranial Nerves IX, X: Palate Movement: Palate Elevation Symmetric
Cranial Nerve XI: Shoulder Shrug: Unremarkable
Cranial Nerve XII: Tongue Protusion: Midline
Muscle Strength, Overall: Other (BUE at least 4/5 diffusely; BLE: moves R toes on command; otherwise no movement--0/5)
Deep Tendon Reflexes: Unremarkable Throughout
Cold Sensation: Other (reports she 'cannot feel anything' with LT/temperature tested in BLE)
Coordination: Finrfl-vqla-evqnit Testing Unremarkable
--- NOTE | 2024-05-06 23:58 | PTCARENOTE ---
Caring for patient overnight. aaox3, pleasant. Denies pain.
Neurovascular checks completed. Assessment seems inconsistent. Pt states & demonstrates she can only wiggle her R foot/toes but when assessing flexion & extension of R foot and asked to push against nurses hand with pt's foot like youre pressing on
a gas pedal pt states she was unable to. PT seemed to help when putting pillow under legs. States she has no sensation in legs. L hand grasp weaker than R. Pt is moving arms normally, able to feed herself, use remote, drink/etc.
VSS. Purewick in place. Remains NSR, on RA. Afebrile. Will continue to monitor.
[2024-05-07] VITALS (14 sets, daily range): BP systolic 86–140; BP diastolic 69–89; PULSE 110; BMI 37.0
[2024-05-07 05:30] LABS: % Immature Granulocytes 0.6 % (0-0.5); % Lymphocytes 10.5 % (20.5-51.1); % Monocytes 1.3 % (1.7-9.3); % Neutrophils 87.6 % (42.2-75.2); Absolute Lymphocytes 0.7 10^3/uL (1.2-3.4); Absolute Monocytes 0.1 10^3/uL (0.1-0.6); Absolute Neutrophils 6.2 10^3/uL (1.4-6.5); Hematocrit 43.5 % (37.0-47.0); Hemoglobin 14.4 g/dL (12.0-16.0); Mean Corp Hgb Conc. 33.1 g/dL (33.0-37.0); Mean Corpuscular Hgb 26.3 pg (27.0-31.0); Mean Corpuscular Volume 79.5 fL (81.0-99.0); Mean Platelet Volume 9.7 fL (7.4-10.4); Nucleated Red Blood Cells % 0 %; Platelet Count 376 10^3/uL (130-400); Red Blood Cell Count 5.47 10^6/uL (4.20-5.40); Red Cell Dist. Width 13.5 % (11.5-14.5)
[2024-05-07 05:53] LABS: AST (SGOT) 20 U/L (14-36); Albumin 4.3 g/dl (3.5-5.0); Alkaline Phosphatase 90 U/L (38-126); Blood Urea Nitrogen 16 mg/dl (7-17); Carbon Dioxide 19 mmol/L (22-30); Chloride 104 mmol/L (98-107); Estimated Creatinine Clearance > 125 ml/min; Glucose 173 mg/dl (70-99); Potassium 4.3 mmol/L (3.5-5.1); Sodium 138 mmol/L (135-145); Total Bilirubin 0.2 mg/dl (0.2-1.3); Total Protein 7.2 g/dl (6.3-8.2); eGFR > 60.00
[2024-05-07 08:45] LABS: ALT (SGPT) < 10 U/L (0-35)
[2024-05-07] MEDS: NSS (PRESERVATIVE FREE) 10 ML IV (08:48)
[2024-05-07] MEDS: ZOLOFT 50 MG PO (08:48)
[2024-05-07] MEDS: PROTONIX IV 40 MG IV (08:48)
[2024-05-07] MEDS: THERAGRAN 1 TABLET PO (08:48)
[2024-05-07] MEDS: PAXLOVID 2X150 MG-100 MG DOSE PACK 1 DOSE PO ×2 (08:48→20:14)
--- NOTE | 2024-05-07 08:51 | W.PN.ID1 ---
Date of Service
Date of Service: May 07, 2024
Today's Communication
consider early PMR consultation
continue trial of steroids
continue paxlovid
follow exam
Assessment / Plan
Polyneuropathy vs MS pseudoexacerbation vs other
Covid Infection - Mild Pulmonary symptoms
MS
[facility] number of opportun[facility] infections
Class II Obesity
- strength is improving in the bilateral upper extremities but no real change in the lower extremities thus far
- covid infection itself can cause a number of neurological syndromes including polyneuropathy, encephalitis, less likely - transverse myelitis given no active lesions on MRI. 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
- CXR in the AM
- c/w high dose steroids - methyl pred 500 mg IV Q 24 hours x5 days - shorter if significant improvement or alternative diagnosis that isnt steroid responsive
- c/w paxlovid x10 days
- switched PPI to 40 mg iv
- add multivitamin
- reviewed potential SE of high dose steroids in detail with patient
- [facility]
- MRI w and w/o contrast brain, C spine, T spine, L spine without new lesions, there are possible old lesions in the brain
- LP - normal CSF cell count, protein, glucose
- meningitis panel including enterovirus, CMV, HSV, VZV - negative
- [place] serologies on CSF and plasma - while typically not outside did spend a long time at an outdoor concert
- lyme serology negative, PCR on the CSF pending - lower concern though not ruled out
- hep A/B/C serologies
- cryptococcus a reasonable consideration given vumerity - ag on csf is pending and is much higher sensitivity than the biofire panel, biofire panel was negative. no active lesions on the cxr or mri
- syphilis serology sent - reports shes had STI panel including HIV screen prior after her last new sexual partner, never had an STI
- consider early PMR consultation
Chief Complaint
-: Other (COVID, polyneuropathy)
Subjective / Review of Systems
remains afebrile
remains on room air - mildly lower saturations
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
payroll accountant/fine motor improving
not seen by PT yesterday
Vital Signs / Physical Exam
Vital Signs
Vital Signs
Temp Pulse Resp BP Pulse Ox
98.1 F 96 15 117/80 89
05/07/24 07:46 05/07/24 06:00 05/07/24 06:00 05/07/24 06:00 05/07/24 06:00
Physical Exam
Constitutional: No Acute Distress, Chronically Ill and Obese
Cardiovascular: Regular Rate and S1/S2; Negative Murmur or Rub
Pulmonary: Clear and Symmetric; Negative Wheezes or Rales
Gastrointestinal: Soft, Non Tender, Non Distended and Normal Bowel Sounds
Skin: Warm and Dry; Negative Rash or Jaundice
Neurological: Other (4+ strength bilateral upper extremities, lower extremities with 3+ strenght at the ankles, no apparent strength in the distal or proximal legs)
Objective Data
Lab Data
Lab Results
05/07/24 05:04
05/07/24 05:04
ESR Cancelled 05/03/24 16:37
PT 13.1 Sec (11.4-14.6) 05/04/24 15:08
INR 1.01 05/04/24 15:08
Estimated Creat Clear > 125 ml/min 05/07/24 05:04
Lactic Acid Cancelled 05/03/24 20:30
Total Bilirubin 0.2 mg/dl (0.2-1.3) 05/07/24 05:04
AST 20 U/L (14-36) 05/07/24 05:04
ALT < 10 U/L (0-35) 05/07/24 05:04
Alkaline Phosphatase 90 U/L (38-126) 05/07/24 05:04
C-Reactive Protein Cancelled 05/03/24 16:37
Most recent labs reviewed as above in addition note:
leukopenia resolved
hgb stable
relapse of lymphocytopenia
send out CSF studies remain pending
qft gold pending
lyme pcr pending, serology negative
[place] serologies pending
csf cx remains no growth
Micro Results:
05/03/24 16:28 Blood Culture - Preliminary
Blood/Venous No Growth in 72 hours- Final report to follow
05/03/24 16:03 CSF Culture - Preliminary
Csf No Growth After 18-24 Hours
Gram Stain - Preliminary
05/05/24 16:03 Meningitis/Encephalitis Panel (PCR) - Final
Csf
--- NOTE | 2024-05-07 09:43 | CON.MD ---
Documented by User: Magalis Curtis MD, Resident 05/07/24 17:01
Consultation - Medical
-
Referring Provider: Jim Gonzalez
Chief Complaint: MS
History of Present Illness:
39 year old right handed female who has PMH of MS, obesity and chronic migraines presented to ER on 05/03/24 complaining from sudden right sided neck pain down to her back with weakness of all extremities. The patient reported she was not able to
move her upper and lower extremities when she was admitted to the hospital. But she reported that she started to feel more her RUE starting from Saturday and started to move her RUE and LUE yesterday.The patient was diagnosed with Covid at admission
and was started on Paxlovid, additionally she had neuroimaging including MRI of brain, C/T/L spine showed no new demyelinating lesions. The patient underwent lumber puncture and results are pending. The patient reported that she was diagnosed
with MS in February 2023 and was able to start treatment for it in July 2023 due insurance problems. She started to have 3 days/ weekly injections and it was changed Vumerity tablet BID/daily 6 months ago after she was hospitalized in October with
exacerbated symptoms of MS. The patient was hospitalized for 3 weeks in October 2022.
Past Medical History: MS, migraines
Procedure History: C Section
Family History: Non contributory
Functional Level Premorbidly: Independent with all activities
Functional Level Currently:
05/05 PT note:Bed Mobility-Supine to sit- Dependent -Sit to supine- Dependent -Comment Dependent:assist x 2 for sitting EOB supervision sitting EOB for UE assessment x 10 minutes, Patient was able to scoot to EOB with use of UE's and place hands
flat. No ambulation.
05/07 PT note: Bed Mobility: -Supine to sit- Supervision -Rolling- Supervision-Comment Supervision for bed mobility patient assisted LE's herself to EOB with her UE's. Able to scoot to EOB supervision
Transfer -Sit to stand- Minimal assistance -Stand to sit- Minimal assistance. Ambulation Patient able to side step 4 ft x 1 with RW and Min A x 2 for safety -Weight Bearing Status: Full weight bearing
Tobacco: Formal smoker (20 years)
Alcohol: Denies
Drug use: Denies
Lives with: family
24-hour assistance available:
Number of floors:
# steps to enter: Has first floor set up
# steps to second floor: has bedroom at second floor
Potential First floor set up:Available
Driving: yes
Occupation: works
Allergies
Allergy/AdvReac Type Severity Reaction Status Date / Time
diphenhydramine Allergy Hives Verified 05/03/24 16:20
[From Benadryl]
Tetanus Vaccines and Toxoid Allergy Unknown Verified 05/03/24 16:20
Home Medications
diroximel fumarate 231 mg capsule,delayed release (Vumerity) 462 mg PO BID Multiple sclerosis, 05/03/24
estradiol 2 mg tablet 2 mg PO DAILY hormone 05/03/24
gabapentin 400 mg capsule 400 mg PO TID Pain 05/03/24
galcanezumab-gnlm 120 mg/mL subcutaneous pen injector (Emgality Pen) 120 mg SC MONTHLY cluster/migraine headache 05/03/24
methylprednisolone 4 mg tablets in a dose pack 4 mg PO PER PKG DIR inflammation 05/03/24
omeprazole 20 mg capsule,delayed release 20 mg PO DAILY gerd 05/03/24
ondansetron HCl 4 mg tablet 4 mg PO TIDPRN PRN nausea 05/03/24
sertraline 50 mg tablet 50 mg PO DAILY Mental Health/Anxiety 05/03/24
sumatriptan succinate 50 mg tablet 50 mg PO UD PRN migraine 05/03/24
Review of Systems:
Constitutional: (x) Normal _
Eye: (x) Normal _
Ear/Nose/Throat: (x) Normal _
Respiratory: (x) Normal _
Cardiovascular: (x) Normal _
Gastrointestinal: (x) Normal _
Genitourinary: (x) Normal _
Musculoskeletal: Bilateral upper and lower extremity weakness, numbness and tingling
Integumentary: (x) Normal _
Neurologic: (x) Normal _
Psychiatric: (x) Normal _
Endocrine: (x) Normal _
Hematologic/Lymphatic: (x) Normal _
Allergic/Immunologic: (x) Normal _
Vitals:
Vital Signs
Temp Pulse Resp BP Pulse Ox
98.1 F 102 21 139/81 95
05/07/24 07:46 05/07/24 10:00 05/07/24 10:00 05/07/24 10:00 05/07/24 10:43
Physical Exam:
General Appearance/Observation: Well-developed, well-nourished individual in no apparent distress.
Pain/Comfort Assessment: Denies
Mood/Affect: Appropriate
Integumentary/Operative Site:
Pressure Ulcer Evaluation: absent over heels.
Eyes: Conjunctiva/Lids: normal Pupils: pupils equal round and reactive to light and Accommodation
Ears/Nose/Throat: oral mucosa moist, throat clear. Lips/Teeth/Gums: normal
Neck: No muscle spasm or tenderness
Cardiovascular: Heart: regular, no murmur
Pulses: dorsalis pedis 2+ bilaterally
Respiratory: Respiratory Effort/Chest Expansion: normal Auscultation: Clear to auscultation bilaterally
Gastrointestinal: abdomen not tender
Genitourinary: No Mitchell
Rectal Exam: Deferred
Extremities: Edema: None Cyanosis: None Trophic changes: None
Neurology Exam:
Orientation: Alert, Oriented to self, Time, Place
Memory: Intact immediately and at 3 minutes
Two step command: Intact
Naming: Intact
Cranial Nerves:
CNII: Pupillary light reflex: Intact Visual Field: Intact
CN III, IV, : Extraocular muscles: Intact
CN V: Facial Sensation at Forehead: Intact, Maxilla: Intact, Mandible: Intact
CN VII: Facial movement: Symmetric
CN VIII: Hearing: Normal
CN IX/X: Speech & swallow: Normal, Position of Uvula: Midline
CN XI: Shoulder shrug: Symmetric
CN XII: Tongue protrusion: Midline
Sensory:
Light touch: LUE has less sensation than RUE, BLE does not have any sensation with light touch
Pin Prick test: The patient was able to discriminate sharp�dull sensation on her face and neck. The patient could not discriminate sharp�dull sensation on bilateral UE. The patient denies feeling on bilateral LE.
Reflexes:
Biceps: 2+ bilaterally
Brachioradialis: 2+ bilaterally
Triceps: 2+ bilaterally
Patellar: 2+ bilaterally
Achilles: Absent bilaterally
Babinski: Absent bilaterally
Clonus: None
Nallely: Negative bilaterally
Musculoskeletal:
Motor: (Manual muscle scale 0-5)
Muscle SA EF WE EE FF FA HF KE DF EHL PF
Right 5 4 4 4 4 4 1 1 1 1 1
Left 5 4 4 4 4 4 1 1 1 1 1
Tone: Normal in all extremities
Range of Motion: Passively within normal limits in all extremities
Lab Results - Hematology
05/05/24 05/06/24 05/07/24
08:04 10:54 05:04
WBC 3.4 L 4.4 L 7.0
Lab Results - Chemistry
05/05/24 05/06/24 05/07/24
08:03 10:54 05:04
BUN 10 14 16
Creatinine 0.6 0.7 0.5 L
Estimated Creat Clear > 125 > 125 > 125
Albumin 4.0 4.2 4.3
Laboratory Data
PT 13.1 Sec (11.4-14.6) 05/04/24 15:08
Total Bilirubin 0.2 mg/dl (0.2-1.3) 05/07/24 05:04
AST 20 U/L (14-36) 05/07/24 05:04
ALT < 10 U/L (0-35) 05/07/24 05:04
Alkaline Phosphatase 90 U/L (38-126) 05/07/24 05:04
Diagnostic Results: as per HPI
05/03: Cervical CT: No evidence of acute fracture or dislocation. No CT findings to suggest discitis or osteomyelitis.
05/03:Head CT: No evidence of acute intracranial abnormality by CT. Paranasal sinus disease as described. Evidence for mucosal hypertrophy involving the right side of the nasal cavity, with significant narrowing of the right middle and inferior
meati.
05/03: Brain MRI: There are T2/FLAIR hyperintensities within the supratentorial and infratentorial white which are likely related to known demyelinating disease. There is no definite associated enhancement. Correlation with prior imaging would be
helpful to assess for temporality.
05/03:Cervical Spinal MRI: No evidence of demyelinating disease within the cervical spine.
05/04: Normal appearance of the thoracic spinal cord, with no evidence for focal demyelination, and no evidence of abnormal enhancement.
Findings of previous Scheuermann's disease from T6-7 through the upper lumbar spine. No evidence for disc protrusion or significant disc bulge, with no evidence for compression of the thoracic spinal cord.
05/04: Normal appearance of the lower spinal cord and conus medullaris. Findings of previous mild Scheuermann's disease within the lower thoracic and upper lumbar spine. Minimal degenerative disc disease at L4-5. At L4-5 there is a small right
foraminal annular fissure. Mild right foraminal narrowing with no evidence for compression of the exiting nerve root.
05/05: Lumbar Puncture was done and results are still pending. CSF results thus far have been unrevealing.
Assessment
The patient a 39 year old female who presented to ER complaining from sudden bilateral Upper/Lower extremities. She started to feel more and move her right and left arm yesterday. She is not able to move her bilateral lower extremities. She also
reports weakness on her trunk and reports difficulty while sitting in the bed in this morning. Denies shortness of breath. She had MRI of brain, C/T/L spine which showed no new demyelinating lesions. The patient underwent lumber puncture and
results are pending. The patient was started on IVSM 500mg daily per ID and Vumerity is on hold. Per neurology,differential diagnosis includes somatization disorder vs MS pseudo-exacerbation due to COVID; polyneuropathy due to COVID also raised
as possible alternative dx and still CSF results thus far have been unrevealing. This afternoon I saw the patient with Dr Aguilar and her nurse reported that the patient was able to transfer herself to chair with a walker with minimal assistance.
And the patient reported she started to feel more her legs this afternoon.
Plan
Multiple sclerosis: No new demyelinating lesions on imaging. Residual weakness from prior. Need records from her outpatient neurologist at [facility] and waiting for CSF pending results. Somatization disorder vs MS pseudo-exacerbation due to COVID;
polyneuropathy due to COVID?
COVID positive:Started on 5-day course of Paxlovid-as per ID through 05/08/2024. No Respiratory distress.
Anxiety/depression: Sertraline. Psych consult would be appreciated
DVT prophylaxis:Lovenox 40 mg SC. TEDs can be considered as mechanical prophylaxis
GERD:PPI
Pressure ulcers: Multi-Podus Boot for bilateral lower extremities, regular repositioning, skin hygiene, promote mobility
Spasticity:Continue range of motion exercises and stretching program to prevent.
Discharge Dispo:Once her diagnosis is confirmed and a treatment plan is established, the patient can be a candidate for acute rehab
Please do not hesitate to reach out for any questions and concerns.
Thanks Dr Hernandez for involving me in this patient`s care.
Magalis Curtis MD
[facility]

Documented by User: David Hernandez MD 05/08/24 00:08
Consultation - Medical
-
Referring Provider: Jim Gonzalez
Chief Complaint: MS
History of Present Illness:
39 year old right handed female who has PMH of MS, obesity and chronic migraines presented to ER on 05/03/24 complaining from sudden right sided neck pain down to her back with weakness of all extremities. The patient reported she was not able to
move her upper and lower extremities when she was admitted to the hospital. But she reported that she started to feel more her RUE starting from Saturday and started to move her RUE and LUE yesterday.The patient was diagnosed with Covid at admission
and was started on Paxlovid, additionally she had neuroimaging including MRI of brain, C/T/L spine showed no new demyelinating lesions. The patient underwent lumber puncture and results are pending. The patient reported that she was diagnosed
with MS in February 2023 and was able to start treatment for it in July 2023 due insurance problems. She started to have 3 days/ weekly injections and it was changed Vumerity tablet BID/daily 6 months ago after she was hospitalized in October with
exacerbated symptoms of MS. The patient was hospitalized for 3 weeks in October 2022.
Past Medical History: MS, migraines
Procedure History: C Section
Family History: Non contributory
Functional Level Premorbidly: Independent with all activities
Functional Level Currently:
05/05 PT note:Bed Mobility-Supine to sit- Dependent -Sit to supine- Dependent -Comment Dependent:assist x 2 for sitting EOB supervision sitting EOB for UE assessment x 10 minutes, Patient was able to scoot to EOB with use of UE's and place hands
flat. No ambulation.
05/07 PT note: Bed Mobility: -Supine to sit- Supervision -Rolling- Supervision-Comment Supervision for bed mobility patient assisted LE's herself to EOB with her UE's. Able to scoot to EOB supervision
Transfer -Sit to stand- Minimal assistance -Stand to sit- Minimal assistance. Ambulation Patient able to side step 4 ft x 1 with RW and Min A x 2 for safety -Weight Bearing Status: Full weight bearing
Tobacco: Formal smoker (20 years)
Alcohol: Denies
Drug use: Denies
Lives with: family
24-hour assistance available:
Number of floors:
# steps to enter: Has first floor set up
# steps to second floor: has bedroom at second floor
Potential First floor set up:Available
Driving: yes
Occupation: works
Allergies
Allergy/AdvReac Type Severity Reaction Status Date / Time
diphenhydramine Allergy Hives Verified 05/03/24 16:20
[From Benadryl]
Tetanus Vaccines and Toxoid Allergy Unknown Verified 05/03/24 16:20
Home Medications
diroximel fumarate 231 mg capsule,delayed release (Vumerity) 462 mg PO BID Multiple sclerosis, 05/03/24
estradiol 2 mg tablet 2 mg PO DAILY hormone 05/03/24
gabapentin 400 mg capsule 400 mg PO TID Pain 05/03/24
galcanezumab-gnlm 120 mg/mL subcutaneous pen injector (Emgality Pen) 120 mg SC MONTHLY cluster/migraine headache 05/03/24
methylprednisolone 4 mg tablets in a dose pack 4 mg PO PER PKG DIR inflammation 05/03/24
omeprazole 20 mg capsule,delayed release 20 mg PO DAILY gerd 05/03/24
ondansetron HCl 4 mg tablet 4 mg PO TIDPRN PRN nausea 05/03/24
sertraline 50 mg tablet 50 mg PO DAILY Mental Health/Anxiety 05/03/24
sumatriptan succinate 50 mg tablet 50 mg PO UD PRN migraine 05/03/24
Review of Systems:
Constitutional: (x) Normal _
Eye: (x) Normal _
Ear/Nose/Throat: (x) Normal _
Respiratory: (x) Normal _
Cardiovascular: (x) Normal _
Gastrointestinal: (x) Normal _
Genitourinary: (x) Normal _
Musculoskeletal: Bilateral upper and lower extremity weakness, numbness and tingling
Integumentary: (x) Normal _
Neurologic: (x) Normal _
Psychiatric: (x) Normal _
Endocrine: (x) Normal _
Hematologic/Lymphatic: (x) Normal _
Allergic/Immunologic: (x) Normal _
Vitals:
Vital Signs
Temp Pulse Resp BP Pulse Ox
98.1 F 102 21 139/81 95
05/07/24 07:46 05/07/24 10:00 05/07/24 10:00 05/07/24 10:00 05/07/24 10:43
Physical Exam:
General Appearance/Observation: Well-developed, well-nourished obese female in no apparent distress.
Pain/Comfort Assessment: Denies
Mood/Affect: Appropriate
Integumentary/Operative Site:
Pressure Ulcer Evaluation: absent over heels.
Eyes: Conjunctiva/Lids: normal Pupils: pupils equal round and reactive to light and Accommodation
Ears/Nose/Throat: oral mucosa moist, throat clear. Lips/Teeth/Gums: normal
Neck: No muscle spasm or tenderness
Cardiovascular: Heart: regular, no murmur
Pulses: dorsalis pedis 2+ bilaterally
Respiratory: Respiratory Effort/Chest Expansion: normal Auscultation: Clear to auscultation bilaterally
Gastrointestinal: abdomen not tender
Genitourinary: No Mitchell
Rectal Exam: Deferred
Extremities: Edema: None Cyanosis: None Trophic changes: None
Neurology Exam:
Orientation: Alert, Oriented to self, Time, Place
Memory: Intact immediately and at 3 minutes
Two step command: Intact
Naming: Intact
Cranial Nerves:
CNII: Pupillary light reflex: Intact Visual Field: Intact
CN III, IV, : Extraocular muscles: Intact
CN V: Facial Sensation at Forehead: Intact, Maxilla: Intact, Mandible: Intact
CN VII: Facial movement: Left facial weakness
CN VIII: Hearing: Normal
CN IX/X: Speech & swallow: Normal, Position of Uvula: Midline
CN XI: Shoulder shrug: Symmetric
CN XII: Tongue protrusion: Midline
Sensory:
Light touch: LUE has less sensation than RUE, BLE does not have any sensation with light touch
Pin Prick test: The patient was able to discriminate sharp�dull sensation on her face and neck. The patient could not discriminate sharp�dull sensation on bilateral UE. The patient denies feeling on bilateral LE.
Reflexes:
Biceps: 2+ bilaterally
Brachioradialis: 2+ bilaterally
Triceps: 2+ bilaterally
Patellar: 2+ bilaterally
Achilles: Absent bilaterally
Babinski: Absent bilaterally
Clonus: None
Nallely: Negative bilaterally
Musculoskeletal: Motor: (Manual muscle scale 0-5)
Muscle SA EF WE EE FF FA HF KE DF EHL PF
Right 5 4 4 4 4 4 1 1 1 2 1
Left 5 4 4 4 4 4 1 1 1 1 1
Tone: Normal in all extremities
Range of Motion: Passively within normal limits in all extremities
Lab Results - Hematology
05/05/24 05/06/24 05/07/24
08:04 10:54 05:04
WBC 3.4 L 4.4 L 7.0
Lab Results - Chemistry
05/05/24 05/06/24 05/07/24
08:03 10:54 05:04
BUN 10 14 16
Creatinine 0.6 0.7 0.5 L
Estimated Creat Clear > 125 > 125 > 125
Albumin 4.0 4.2 4.3
Laboratory Data
PT 13.1 Sec (11.4-14.6) 05/04/24 15:08
Total Bilirubin 0.2 mg/dl (0.2-1.3) 05/07/24 05:04
AST 20 U/L (14-36) 05/07/24 05:04
ALT < 10 U/L (0-35) 05/07/24 05:04
Alkaline Phosphatase 90 U/L (38-126) 05/07/24 05:04
Diagnostic Results: as per HPI
05/03: Cervical CT: No evidence of acute fracture or dislocation. No CT findings to suggest discitis or osteomyelitis.
05/03:Head CT: No evidence of acute intracranial abnormality by CT. Paranasal sinus disease as described. Evidence for mucosal hypertrophy involving the right side of the nasal cavity, with significant narrowing of the right middle and inferior
meati.
05/03: Brain MRI: There are T2/FLAIR hyperintensities within the supratentorial and infratentorial white which are likely related to known demyelinating disease. There is no definite associated enhancement. Correlation with prior imaging would be
helpful to assess for temporality.
05/03:Cervical Spinal MRI: No evidence of demyelinating disease within the cervical spine.
05/04: Normal appearance of the thoracic spinal cord, with no evidence for focal demyelination, and no evidence of abnormal enhancement.
Findings of previous Scheuermann's disease from T6-7 through the upper lumbar spine. No evidence for disc protrusion or significant disc bulge, with no evidence for compression of the thoracic spinal cord.
05/04: Normal appearance of the lower spinal cord and conus medullaris. Findings of previous mild Scheuermann's disease within the lower thoracic and upper lumbar spine. Minimal degenerative disc disease at L4-5. At L4-5 there is a small right
foraminal annular fissure. Mild right foraminal narrowing with no evidence for compression of the exiting nerve root.
05/05: Lumbar Puncture was done and results are still pending. CSF results thus far have been unrevealing.
Assessment
39 year old female who presented to ER complaining from sudden bilateral Upper/Lower extremities. She started to feel more and move her right and left arm yesterday. She is not able to move her bilateral lower extremities. She also reports weakness
on her trunk and reports difficulty while sitting in the bed in this morning. Denies shortness of breath. She had MRI of brain, C/T/L spine which showed no new demyelinating lesions. The patient underwent lumber puncture and results are
pending. The patient was started on IVSM 500mg daily per ID and Vumerity is on hold. Per neurology,differential diagnosis includes somatization disorder vs MS pseudo-exacerbation due to COVID; polyneuropathy due to COVID also raised as possible
alternative dx and still CSF results thus far have been unrevealing. This afternoon I saw the patient with Dr Aguilar and her nurse reported that the patient was able to transfer herself to chair with a walker with minimal assistance. And the
patient reported she started to feel more her legs this afternoon.
Plan
PM&R: Acute inpatient rehab with PT/OT/SW/RN/psychology to increase independence with ADLs, improve balance, coordination, endurance, strength, mobility, community reintegration, decreased burden of care on others and family education.
Bilateral UE/LE weakness worse on left vs right and lower vs upper: Possible neuropathy from COVID. Tests without etiology identified so far otherwise. Exam variable per nursing throughout the day. Patient notes more movement today.
Multiple sclerosis: No new demyelinating lesions on imaging. Residual weakness from prior. Need records from her outpatient neurologist at [facility] and waiting for CSF pending results. Somatization disorder vs MS pseudo-exacerbation due to COVID;
polyneuropathy due to COVID?
COVID positive: Started on 5-day course of Paxlovid-as per ID through 05/08/2024. No Respiratory distress. Respiratory Isolation for 10 days after diagnosis. Getting methylprednisolone as well.
Anxiety/depression: Sertraline. Psych consult would be appreciated
FEN:Regular diet
Skin: monitor for pressure sores/rashes/lesions.
Pain: acetaminophen as needed. Sumatriptan for migraines.
Bowel: Colace and Senna, PRN bisacodyl.
Bladder: Time void, PVRs, PRN straight cath.
DVT prophylaxis:Lovenox 40 mg SC. TEDs can be considered as mechanical prophylaxis
GERD: PPI
Pressure ulcer prevention: Multi-Podus Boot for bilateral lower extremities, regular repositioning, skin hygiene, promote mobility
Spasticity:Continue range of motion exercises and stretching program to prevent.
Discharge Dispo:Once her diagnosis is confirmed and a treatment plan is established, the patient can be a candidate for acute rehab
Safety: Continue to reinforce assistance with all transfers.
Code Status:� Full code
Functional and Medical Goals: Modified Independent with ADL�s, ambulation, transfers
Please do not hesitate to reach out for any questions and concerns.
Thanks Dr Hernandez for involving me in this patient`s care.
Magalis Curtis MD
[facility]itional Year [facility]
Thank you for allowing me to care for your patient. Please contact me with any questions or concerns.
Attending Statement: I saw and examined the patient with resident 06/07/24.� Reviewed care plan with patient, nursing, and resident.� I agree with the above subjective and physical exam, and plan as documented by Presidents with adjustments made as
necessary.
A total of 60 minutes were spent with the patient preparing for the evaluation, obtaining history, performing examination and evaluation, counseling, data review, case management, care coordination, sales order clerk, and EMR documentation.
[2024-05-07] MEDS: SOLU-MEDROL 108 MG IV (11:10)
[2024-05-07 12:16] LABS: Glucose - Point of Care 167 mg/dl (70-99)
[2024-05-07] MEDS: IMITREX 50 MG PO ×2 (13:45→22:10)
[2024-05-07] MEDS: NOVOLOG FLEXPEN-LOW RESISTANCE 1 UNITS SC (13:46)
--- NOTE | 2024-05-07 14:54 | PTCARENOTE ---
Assumed care of patient at beginning of this shift from previous RN. Received second dose of Methylprednisolone today; patient tolerated. Accu checks added with sliding scale coverage; refer to [employer] for results and MAR for sliding scale
coverage. Patient c/o headache; resident ordered imitrex which provided patient with relief. Neuro checks completed as ordered; see worklist. Patient continues to deny feeling in both lower extremities, but states numbness/tingling to arms has
improved. Patient able to move R foot slightly, this nurse was also able to feel slight muscle movement in left foot. She states she has been moving both arms, but states left continues to be weaker than left. Both hand grasps noted to be weak.
PT/OT to work with patient this afternoon.
--- NOTE | 2024-05-07 16:23 | PTCARENOTE ---
PT/OT worked with patient and reported to this nurse that she is OOB to chair with 2 person min assist; stated patient's legs did not buckle when getting up to chair. Patient currently being seen by physiatry; this nurse updated them. Hospitalist
resident updated as well.
--- NOTE | 2024-05-07 16:46 | W.PN.HOSP.TC ---
Addendum entered and electronically signed by Jim Gonzalez MD 05/07/24 18:01:
ateral lower extremity weakness numbness and COVID-19 asymptomatic not requiring oxygen. Known history of MS immunocompromise outpatient steroids. Start Paxlovid. No antibiotics indicated. ID following.
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
-Discussed with ID
-Start High dose steroids
-PT/OT rec AIR
-Physiatry consulted
-Lyme negative
-LP without evidence bacterial/aseptic findings
MS.
-Hold vumerity right now
Original Note:
Today's Communication/Plan
-
Follow-up for microcytic anemia and outpatient
get iron folate labs done in outpatient
Ordered 50 mg of Imitrex
Continue to follow-up with ID
Assessment / Plan
Assessment / Plan
39-year-old female, with past medical history of MS (diagnosed 1 year ago), migraines presented with sudden onset lower extremity weakness and loss of sensation, neck stiffness. Patient was febrile, Tmax at 1020.9 on presentation, elevated CRP at
25.
Impression
Lower extremity weakness
COVID-positive
Multiple sclerosis
Migraine
Anxiety/depression
Plan
#Covid Polyneuropathy
- consulted with Neurology
- ID consulted , started high dose steroids and pantoprazole IV 40 mg BID
- PMN&R consulted for rehab.
- Lumbar puncture (05/05) negative
-Started on low resistance SSI protocol because of steroid-induced hyperglycemia
� Chemical prophylaxis with Lovenox as patient is at high risk of DVT due to COVID diagnosis
#microcytic anaemia
- MCV 79.5
- f/u in outpatient
-Get iron/folate labs done in outpatient
#Lower extremity weakness
Etiology might be secondary to MS flare versus transverse myelitis versus Guillian barre versus COVID infection resulting in encephalitis.
Acute onset
Patient is able to wiggle her toes on the right lower extremity today
Patient had a recent dental infection for which she completed a course of antibiotics/Medrol Dosepak
Brain MRI�no new demyelinating lesions, cervical spine MRI�no evidence of demyelinating disease, no foraminal/spinal canal stenosis.
Lumbar spine MRI�
Infectious Disease (05/07)- discontinued vancomycin/ceftriaxone, continue paxlovid, continue to f/u with ID
IR consulted-plan on LP today (awaiting results)
Recommended for the patient to hold off on Vumerity
talked to dr. luis patel whois patients neurologist regarding her previous MS history
continue current steroid regiment
# COVID positive
Started on 5-day course of Paxlovid-as per ID through 05/08/2024
Currently on room air
# Multiple sclerosis
No new demyelinating lesions
Residual weakness from prior
# Migraine
Started on Emgality 1 week ago
ordered imitrex 50 mg (05/07)
#Anxiety/depression
Continue sertraline
DVT prophylaxis�SCDs
Anticipated Discharge: 24 - 48 hours
Subjective/Interval History
-
Date of Service: May 07, 2024
Objective Data
-
Labs:
Laboratory Results
05/07/24
05:04
WBC 7.0
Hgb 14.4
Hct 43.5
Plt Count 376
Sodium 138
Potassium 4.3
Chloride 104
Carbon Dioxide 19 L
BUN 16
Creatinine 0.5 L
Glucose 173 H
Calcium 10.0
Total Bilirubin 0.2
AST 20
ALT < 10
Alkaline Phosphatase 90
Vital Signs:
Vital Signs
Temp Pulse Resp BP Pulse Ox
98.1 F 96 19 140/78 95
05/07/24 07:46 05/07/24 12:00 05/07/24 12:00 05/07/24 12:00 05/07/24 10:43
I&O
05/06/24 05/07/24 05/08/24
06:59 06:59 06:59
Intake Total 240 / 240 240 / 240
Output Total 850 / 850 100 / 100
Balance -610 / -610 140 / 140
Review of Systems
-
History Source: Patient
All other systems: Reviewed and negative
Physical Exam
-
General: Well Developed and Well Nourished
HEENT: Normocephalic and Atraumatic
Respiratory: Clear to Auscultation
Cardiac: S1/S2
GI: Soft and Nondistended
Musculoskeletal: Other (4+ strength bilateral upper extremities, lower extremities with 3+ strenght at the ankles, no apparent strength in the distal or proximal legs)
Skin: Warm and Dry
Neuro: Awake, Alert, Oriented and AO x 3
Psych: Calm
Data Reviewed
-
Labs: Labs Reviewed by me and Discussed with Physician
[2024-05-07] MEDS: LOVENOX 40 MG SC (17:40)
[2024-05-07] MEDS: NOVOLOG FLEXPEN-LOW RESISTANCE SC (17:40)
[2024-05-07 17:50] LABS: Glucose - Point of Care 127 mg/dl (70-99)
--- NOTE | 2024-05-07 18:04 | PTCARENOTE ---
Patient was assisted from chair to commode by this nurse and PCT; contact guard. Patient had large bm; was able to stand to wipe herself with contact guard. When dinner tray arrived, patient was able to lift both feet up off of floor so this RN
could move bedside table closer to chair. She remains sitting in chair at this time.
[2024-05-07 18:30] LABS: Hepatitis B Surface Antigen Negative (Negative)
[2024-05-07 18:49] LABS: Hepatitis B Core Ab, Total Negative (Negative); Hepatitis B Surface Antibody Positive; Hepatitis C Antibody Negative (Negative)
[2024-05-07 18:56] LABS: Hepatitis A Antibody, Total Negative (Negative)
[2024-05-07 21:40] LABS: Glucose - Point of Care 190 mg/dl (70-99)
[2024-05-08] VITALS (12 sets, daily range): BP systolic 107–132; BP diastolic 62–89; BMI 37.1
[2024-05-08 05:15] LABS: % Basophils 0.1 % (0-2); % Immature Granulocytes 0.5 % (0-0.5); % Lymphocytes 5.5 % (20.5-51.1); % Monocytes 1.9 % (1.7-9.3); Absolute Immature Granulocytes 0.1 10^3/uL (0-0.05); Absolute Lymphocytes 0.9 10^3/uL (1.2-3.4); Absolute Monocytes 0.3 10^3/uL (0.1-0.6); Absolute Neutrophils 15.8 10^3/uL (1.4-6.5); Hematocrit 39.3 % (37.0-47.0); Hemoglobin 13.2 g/dL (12.0-16.0); Mean Corp Hgb Conc. 33.6 g/dL (33.0-37.0); Mean Corpuscular Hgb 26.7 pg (27.0-31.0); Mean Corpuscular Volume 79.4 fL (81.0-99.0); Mean Platelet Volume 9.9 fL (7.4-10.4); Nucleated Red Blood Cells % 0 %; Platelet Count 325 10^3/uL (130-400); Red Blood Cell Count 4.95 10^6/uL (4.20-5.40); Red Cell Dist. Width 13.7 % (11.5-14.5); White Blood Cell Count 17.2 10^3/uL (4.8-10.8)
[2024-05-08 05:38] LABS: ALT (SGPT) 18 U/L (0-35); AST (SGOT) 17 U/L (14-36); Alkaline Phosphatase 85 U/L (38-126); Blood Urea Nitrogen 19 mg/dl (7-17); Calcium 9.9 mg/dl (8.4-10.2); Carbon Dioxide 23 mmol/L (22-30); Chloride 105 mmol/L (98-107); Estimated Creatinine Clearance > 125 ml/min; Glucose 161 mg/dl (70-99); Potassium 4.2 mmol/L (3.5-5.1); Sodium 140 mmol/L (135-145); Total Bilirubin 0.2 mg/dl (0.2-1.3); Total Protein 6.9 g/dl (6.3-8.2); eGFR > 60.00
[2024-05-08] MEDS: NOVOLOG FLEXPEN-LOW RESISTANCE SC (08:16)
[2024-05-08] MEDS: ZOLOFT 50 MG PO (08:19)
[2024-05-08] MEDS: THERAGRAN 1 TABLET PO (08:19)
[2024-05-08] MEDS: NSS (PRESERVATIVE FREE) 10 ML IV (08:20)
[2024-05-08] MEDS: PROTONIX IV 40 MG IV (08:20)
[2024-05-08] MEDS: PAXLOVID 2X150 MG-100 MG DOSE PACK 1 DOSE PO ×2 (08:20→20:30)
[2024-05-08 08:25] LABS: Glucose - Point of Care 119 mg/dl (70-99)
[2024-05-08] MEDS: IMITREX 50 MG PO ×2 (08:57→22:04)
--- NOTE | 2024-05-08 09:06 | W.PN.ID1 ---
Date of Service
Date of Service: May 08, 2024
Today's Communication
10 day course of paxlovid given recent high dose steroids
stopped steroids
west nile serologies negative
Assessment / Plan
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
Covid Infection - Mild Pulmonary symptoms
MS
Immunosuppression - vumerity ass with a number of opportunistic infections
Class II Obesity
- was able to get out of bed to chair with two person min assist
- discussed with Dr Pinto neurology, Dr Degroot was also concerned for possible conversion disorder
- stopped steroids, observe clinically
- further management of vumerity per neurology
- CXR no infiltrates
- c/w paxlovid x10 days - longer course given the recent high dose steroids, 05/04-05/13
- PPI switched back to oral - further management per IM service
- MRI w and w/o contrast brain, C spine, T spine, L spine without new lesions, there are possible old lesions in the brain
- LP - normal CSF cell count, protein, glucose
- meningitis panel including enterovirus, CMV, HSV, VZV - negative
- west nile serologies on plasma and CSF negative
- lyme serology negative, PCR on the CSF pending - low concern
- hep A/B/C serologies - prior vax to hep B, otherwise negative
- cryptococcus ag on csf is pending and is much higher sensitivity than the biofire panel, biofire panel was negative. no active lesions on the cxr or mri
- syphilis serology sent - reports shes had STI panel including HIV screen prior after her last new sexual partner, never had an STI
- follow clinically
Chief Complaint
-: Other (COVID, polyneuropathy)
Subjective / Review of Systems
afebrile
able to get out of bed to chair with 2 person min assist overnight
Vital Signs / Physical Exam
Vital Signs
Vital Signs
Temp Pulse Resp BP Pulse Ox
98.0 F 71 15 117/77 96
05/08/24 03:00 05/08/24 04:00 05/08/24 04:00 05/08/24 04:00 05/08/24 04:00
Physical Exam
Constitutional: No Acute Distress
Cardiovascular: Regular Rate and S1/S2; Negative Murmur or Rub
Pulmonary: Clear and Symmetric; Negative Wheezes or Rales
Gastrointestinal: Soft, Non Tender, Non Distended and Normal Bowel Sounds
Skin: Warm and Dry; Negative Rash or Jaundice
Neurological: Other (strength 4+ in the bilateral upper extremities, lower extremities 1+)
Objective Data
Lab Data
Lab Results
05/08/24 04:58
05/08/24 04:58
ESR Cancelled 05/03/24 16:37
PT 13.1 Sec (11.4-14.6) 05/04/24 15:08
INR 1.01 05/04/24 15:08
Estimated Creat Clear > 125 ml/min 05/08/24 04:58
Lactic Acid Cancelled 05/03/24 20:30
Total Bilirubin 0.2 mg/dl (0.2-1.3) 05/08/24 04:58
AST 17 U/L (14-36) 05/08/24 04:58
ALT 18 U/L (0-35) 05/08/24 04:58
Alkaline Phosphatase 85 U/L (38-126) 05/08/24 04:58
C-Reactive Protein Cancelled 05/03/24 16:37
Most recent labs reviewed as above in addition - leukocytosis reactive due to steroids
Micro Results:
05/03/24 16:28 Blood Culture - Preliminary
Blood/Venous No Growth in 4 days- Final report to follow
05/03/24 16:03 CSF Culture - Preliminary
Csf No Growth After 48 Hours
Gram Stain - Preliminary
05/05/24 16:03 Meningitis/Encephalitis Panel (PCR) - Final
Csf
Care Review
Plan reviewed with: Physician (Dr Pinto - conversion disorder)
--- NOTE | 2024-05-08 09:36 | CM ---
Addendum entered by Cindy Templeton RN 05/08/24 10:11:
Noting CSF, TB, lyme, syphilis, IgG & MS Intrep test results are pending.
Original Note:
Patient with Hx MS with Dx bilateal LE weakness & numbness, Covid + 05/03. Room air. Receiving Paxlovid.
Physiatry Consult 05/07: Discharge Dispo:Once her diagnosis is confirmed and a treatment plan is established, the patient can be a candidate for acute rehab
PT & OT Evals 05/07; requires assist of 2, recommend acute rehab.
Spoke with patient; she volunteers that she was able to sit in a chair but still has numbness so based on her current functional status she is receptive to going to [facility]. The patient is aware that if she continues to improve the d/c plan can be
updated if she is able & willing to return home at d/c.
The patient lives with her 19 yr old daughter, 14 & 9 yr old nieces and her mother. Her mother is currently caring for the children.
Spoke with [facility]; they are following the patient and will be able to accept once diagnostic testing is completed & diagnosis known, as per Physiatry Eval, and patient is ready for d/c. They currently are full and have no available beds.
Will need insurance auth for [facility].
Plan probable [facility] when medically ready and bed available.
--- NOTE | 2024-05-08 10:03 | W.PN.NEURO.1 ---
Today's Communication / Plan
-
Await remainder of CSF results
started on IVSM 500mg daily per ID, would discontinue this medication after 3 doses with the patient's marked improvement and lack of clarity regarding evidence of transverse myelitis
Vumerity may be restarted as per ID
Neuro Assessment/Plan
Assessment
Abrupt onset right neck pain radiating down the back with subsequent inability to move arms or legs.
The patient previously has been diagnosed as having multiple sclerosis and migraine. Since hospitalization, the patient has been diagnosed with COVID-19.
she has had extensive neuroimaging including MRI brain, C/T/L spine; no new demyelinating lesions; no SC lesions to explain symptoms.
On exam she reports no sensation in BLE and 0/5 muscle strength beyond moving R toes spontaneously--likely at least some component of giveaway weakness on exam. Patient now with return of strength.
Differential diagnosis for symptomatology includes somatization disorder vs MS pseudo-exacerbation due to COVID. The reason that the patient is most likely experiencing a somatizations disorder includes absence of structural abnormalities extensive
neuroimaging as well as absence of transverse myelitis by lumbar puncture testing. The sudden improvement with 2 doses of high-dose steroids also makes the diagnosis of some matization more likely as this would be unlikely to suddenly produce such
a massive change in function
Plan
Await remainder of CSF results
started on IVSM 500mg daily per ID, would discontinue this medication after 3 doses with the patient's marked improvement and lack of clarity regarding evidence of transverse myelitis
Vumerity may be restarted as per ID
Need records from her outpatient neurologist at [facility].
Management of COVID per ID.
Physical therapy evaluations
Patient should have follow-up with her usual outpatient neurologist.
Subjective/Objective
Subjective Data
Date of Service: May 08, 2024
Objective Data
Vital Signs
Temp Pulse Resp BP Pulse Ox
36.7 C 71 15 117/77 96
05/08/24 03:00 08/30/24 04:00 05/08/24 04:00 05/08/24 04:00 05/08/24 04:00
Lab Results
05/08/24 04:58
05/08/24 04:58
PT 13.1 Sec (11.4-14.6) 05/04/24 15:08
INR 1.01 05/04/24 15:08
Sodium 140 mmol/L (135-145) 05/08/24 04:58
Potassium 4.2 mmol/L (3.5-5.1) 05/08/24 04:58
BUN 19 mg/dl (7-17) H 05/08/24 04:58
Glucose 161 mg/dl (70-99) H 05/08/24 04:58
Calcium 9.9 mg/dl (8.4-10.2) 05/08/24 04:58
Patient Allergies
diphenhydramine [From Benadryl] Allergy (Verified 05/03/24 16:20)
Hives
Tetanus Vaccines and Toxoid Allergy (Verified 05/03/24 16:20)
Unknown
Data Reviewed
-
MRI Thoracic Spine: Report Reviewed
Labs: Report Reviewed
Reviewed with: Physician and Nurse Practioner
Old Records: Summarized
Past History
Past History
ED Past Medical History: Other (MS) and Other (Migraines)
ED Past Surgical History: and Gynecological
Family History
Family History: Other (Reviewed and noncontributory)
Medications
-
Medications:
Generic Name Dose Route Start Last Admin
Trade Name Freq PRN Reason Stop Dose Admin
Acetaminophen 650 mg 05/03/24 23:47 05/04/24 22:55
Acetaminophen 325 Mg Tablet PO 05/31/24 23:46 650 mg
Q4HPRN PRN Administration
Mild Pain / Temp > 101
Dextrose 12.5 grams 05/07/24 12:00
Dextrose 50% (0.5 Grams/Ml) 50 Ml Syringe IV 06/04/24 11:59
[id number] PRN
hypoglycemia
Protocol
Enoxaparin Sodium 40 mg 05/07/24 18:00 05/07/24 17:40
Enoxaparin Sodium 40 Mg/0.4 Ml Syringe SC 06/04/24 17:59 40 mg
QPM MARTHA Administration
Glucagon 1 mg 05/07/24 12:00
Glucagon 1 Mg Vial IM 06/04/24 11:59
PRN PRN
hypoglycemia - no IV access
Protocol
Insulin Aspart 0 units 05/07/24 11:30 05/08/24 08:16
Insulin Aspart Low Resistance 300 Units/3 Ml Pen.Injctr SC 06/04/24 11:29 Not Given
AC MARTHA
Protocol
Multivitamins Therapeutic 1 tablet 05/06/24 10:00 05/08/24 08:19
Multivitamin Tablet PO 06/03/24 09:59 1 tablet
DAILY MARTHA Administration
Nirmatrelvir/Ritonavir 1 dose 05/04/24 10:15 05/08/24 08:20
Nirmatrelvir 300 Mg/Ritonavir 100 Mg (Paxlovid 300 Mg;100 Mg Dose Pack) PO 05/08/24 20:01 1 dose
BID MARTHA Administration
Nirmatrelvir/Ritonavir 1 dose 05/09/24 08:00
Nirmatrelvir 300 Mg/Ritonavir 100 Mg (Paxlovid 300 Mg;100 Mg Dose Pack) PO 05/13/24 20:01
BID MARTHA
Pantoprazole Sodium 40 mg 05/09/24 08:00
Pantoprazole 40 Mg Delayed Release Tablet PO 06/06/24 07:59
DAILY MARTHA
Polyethylene Glycol 17 grams 05/07/24 09:58
Polyethylene Glycol Powder 17 Grams Packet PO 06/04/24 09:57
DAILYPRN PRN
constipation
Sertraline HCl 50 mg 05/04/24 08:00 05/08/24 08:19
Sertraline 50 Mg Tablet PO 06/01/24 07:59 50 mg
DAILY MARTHA Administration
Sodium Chloride 0 flush 05/04/24 01:00
Sodium Chloride 0.9% (Flush) Syringe IV 06/01/24 00:59
PER PROTOCOL MARTHA
--- NOTE | 2024-05-08 11:26 | W.PN.HOSP.TC ---
Addendum entered and electronically signed by Jim Gonzalez MD 05/08/24 13:38:
ateral lower extremity weakness numbness and COVID-19 asymptomatic not requiring oxygen. Known history of MS immunocompromise outpatient steroids. Start Paxlovid. No antibiotics indicated. ID following.
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
-Discussed with ID
-DC High dose steroids
-Paxlovid [id number] per ID
-Iso precaiutions
-PT/OT rec AIR
-Physiatry consulted
-Lyme negative
-LP without evidence bacterial/aseptic findings
MS.
-Hold vumerity right now
Original Note:
Today's Communication/Plan
-
IV steroids were discontinued
Take the paxlovid for another 5 days through (05/13)
admit to the [facility] when beds are available
F/U with ID and Neuro as to when she start taking her Vumerity again
Assessment / Plan
Assessment / Plan
39-year-old female, with past medical history of MS (diagnosed 1 year ago), migraines presented with sudden onset lower extremity weakness and loss of sensation, neck stiffness. Patient was febrile, Tmax at 1020.9 on presentation, elevated CRP at
25.
Impression
Lower extremity weakness
COVID-positive
Multiple sclerosis
Migraine
Anxiety/depression
Plan
#Covid Polyneuropathy
- consulted with Neurology
- ID consulted , started high dose steroids and pantoprazole IV 40 mg BID
- PMN&R consulted for rehab.
- Lumbar puncture (05/05) negative
-Started on low resistance SSI protocol because of steroid-induced hyperglycemia
� Chemical prophylaxis with Lovenox as patient is at high risk of DVT due to COVID diagnosis
#microcytic anaemia
- MCV 79.5
- f/u in outpatient
-Get iron/folate labs done in outpatient
#Lower extremity weakness
Etiology might be secondary to MS flare versus transverse myelitis versus Guillian barre versus COVID infection resulting in encephalitis.
Acute onset
Patient is able to wiggle her toes on the right lower extremity today
Patient had a recent dental infection for which she completed a course of antibiotics/Medrol Dosepak
Brain MRI�no new demyelinating lesions, cervical spine MRI�no evidence of demyelinating disease, no foraminal/spinal canal stenosis.
Lumbar spine MRI�
Infectious Disease (05/07)- discontinued vancomycin/ceftriaxone, continue paxlovid, continue to f/u with ID
IR consulted-plan on LP today (awaiting results)
Recommended for the patient to hold off on Vumerity
talked to dr. luis patel whois patients neurologist regarding her previous MS history
# COVID positive
continue paxlovid up to 04/13/24
Currently on room air
# Multiple sclerosis
No new demyelinating lesions
Residual weakness from prior
# Migraine
Started on Emgality 1 week ago
ordered imitrex 50 mg 1 dose (05/07)
ordered imitrex 50 mg 1 dose (05/08)
#Anxiety/depression
Continue sertraline
DVT prophylaxis�SCDs
Anticipated Discharge: Today
Subjective/Interval History
-
Date of Service: May 08, 2024
discontinue the IV steroids
Take the paxlovid for another 10 days
no acute complaints
PMNR recommends discharge to [facility] for ot/pt/ when beds are available
Objective Data
-
Labs:
Laboratory Results
05/08/24
04:58
WBC 17.2 H
Hgb 13.2
Hct 39.3
Plt Count 325
Sodium 140
Potassium 4.2
Chloride 105
Carbon Dioxide 23
BUN 19 H
Creatinine 0.5 L
Glucose 161 H
Calcium 9.9
Total Bilirubin 0.2
AST 17
ALT 18
Alkaline Phosphatase 85
Vital Signs:
Vital Signs
Temp Pulse Resp BP Pulse Ox
98.0 F 71 15 117/77 96
05/08/24 03:00 05/08/24 04:00 05/08/24 04:00 05/08/24 04:00 05/08/24 04:00
I&O
05/07/24 05/08/24 05/09/24
06:59 06:59 06:59
Intake Total 240 / 240 480 / 480
Output Total 100 / 100 950 / 950
Balance 140 / 140 -470 / -470
Review of Systems
-
History Source: Patient
All other systems: Reviewed and negative
Physical Exam
-
General: Well Developed and Well Nourished
HEENT: Normocephalic and Atraumatic
Respiratory: Clear to Auscultation
Cardiac: S1/S2
GI: Soft and Nondistended
Musculoskeletal: Other ((4+ strength bilateral upper extremities, lower extremities with 3+ strenght at the ankles, no apparent strength in the distal or proximal legs)
Skin: Warm and Dry
Neuro: Awake, Alert, Oriented and AO x 3
Psych: Calm
Data Reviewed
-
Labs: Labs Reviewed by me and Discussed with Physician
[2024-05-08 11:28] LABS: Glucose - Point of Care 159 mg/dl (70-99)
[2024-05-08 11:54] LABS: Syphilis/T. pallidum Ab Reflex Negative (Negative)
[2024-05-08] MEDS: NOVOLOG FLEXPEN-LOW RESISTANCE 1 UNITS SC ×2 (13:21→18:09)
[2024-05-08 14:07] LABS: Quantiferon Mitogen minus NIL 9.94 IU/mL; Quantiferon NIL 0.06 IU/mL; Quantiferon TB Gold Plus Negative (Negative)
[2024-05-08 14:14] LABS: Glucose - Point of Care 106 mg/dl (70-99)
[2024-05-08] MEDS: LOVENOX 40 MG SC (17:38)
--- NOTE | 2024-05-08 17:41 | PTCARENOTE ---
Recd pt this AM. vital signs stable. Pt upset about her steroid being d.c. she would like to continue with the steroid treatment until she is able to move to [facility]. she states that she has no feeling in her legs. Pt was able to ambulate to the
[facility] with 1 assist with walker. medical team updated. Pt requests to speak to her medical team regarding the steroids MENDEZ JON has nofied Dr. Becca Gonzalez and Dr. Geronimo
[2024-05-08 17:43] LABS: Glucose - Point of Care 182 mg/dl (70-99)
--- NOTE | 2024-05-08 17:56 | PTCARENOTE ---
During ambulation to [facility] pt tachy in the 130s, sinus tach, resolved after a minute once pt back to bed. Parent at bedside also asking to speak to medical team regarding pt's steroids being d.c. RN relayed this info to medical attending and resident.
[2024-05-08 21:55] LABS: Glucose - Point of Care 155 mg/dl (70-99)
[2024-05-08 23:37] LABS: Paraneoplastic Ab IgG, CSF None Detected (None Detected)
[2024-05-09] VITALS: BP 117/73
[2024-05-09 02:00] VITALS: BP 128/82
[2024-05-09 03:10] LABS: Lyme Disease DNA by PCR Not Detected; Lyme Source CSF
--- NOTE | 2024-05-09 03:31 | PTCARENOTE ---
Pt received at beginning of shift resting in bed. AAOx3. Admits to headache. Requesting dose of Imitrex as she is prescribed at home. Lavern CULP TT'd and one time order entered and given with good result. Pt observed using both arms without
difficulty reaching over to side table to pick items up. Able to slightly rock right foot back and forth. States she can not feel both her legs. Pt informed she is now on bedrest. +pedal pulses. Hypoactive BS. No edema noted. Purewick in place
draining yellow urine. Band aid to mid back c/d/i. Knee scd's on and working. Skin flushed. VSS. Afebrile. SR on CM. Neuro checks as documented. Rest of assessment as documented. Pt states she is able to turn self but will use call wheat if needs
assistance. Call wheat remains within reach. Will continue to monitor.
[2024-05-09 03:43] VITALS: BMI 37.4
[2024-05-09 04:00] VITALS: BP 135/93
[2024-05-09 04:53] LABS: % Basophils 0.1 % (0-2); % Lymphocytes 5.1 % (20.5-51.1); % Monocytes 3.1 % (1.7-9.3); % Neutrophils 90.7 % (42.2-75.2); Absolute Immature Granulocytes 0.2 10^3/uL (0-0.05); Absolute Lymphocytes 0.9 10^3/uL (1.2-3.4); Absolute Monocytes 0.6 10^3/uL (0.1-0.6); Absolute Neutrophils 16.6 10^3/uL (1.4-6.5); Hematocrit 37.6 % (37.0-47.0); Hemoglobin 12.7 g/dL (12.0-16.0); Mean Corp Hgb Conc. 33.8 g/dL (33.0-37.0); Mean Corpuscular Hgb 26.5 pg (27.0-31.0); Mean Corpuscular Volume 78.3 fL (81.0-99.0); Nucleated Red Blood Cells % 0 %; Platelet Count 332 10^3/uL (130-400); Red Cell Dist. Width 13.9 % (11.5-14.5); White Blood Cell Count 18.3 10^3/uL (4.8-10.8)
[2024-05-09 05:15] LABS: ALT (SGPT) 20 U/L (0-35); AST (SGOT) 18 U/L (14-36); Albumin 3.8 g/dl (3.5-5.0); Alkaline Phosphatase 92 U/L (38-126); Blood Urea Nitrogen 19 mg/dl (7-17); Calcium 9.3 mg/dl (8.4-10.2); Carbon Dioxide 28 mmol/L (22-30); Chloride 102 mmol/L (98-107); Estimated Creatinine Clearance > 125 ml/min; Glucose 127 mg/dl (70-99); Potassium 4.5 mmol/L (3.5-5.1); Sodium 141 mmol/L (135-145); Total Bilirubin 0.2 mg/dl (0.2-1.3); Total Protein 6.5 g/dl (6.3-8.2); eGFR > 60.00
[2024-05-09 06:00] VITALS: BP 112/82
[2024-05-09 07:50] LABS: Glucose - Point of Care 102 mg/dl (70-99)
--- NOTE | 2024-05-09 08:15 | PTCARENOTE ---
Rec'd pt this AM. RN relayed pt's concerns again this AM to medical and neuro team. Pt is resting comfortably.
--- NOTE | 2024-05-09 08:36 | W.PN.HOSP.TC ---
Today's Communication/Plan
-
continue current care plan
f/u CSF studies
patient placed on waitlist for [facility] transfer
Assessment / Plan
Assessment / Plan
39-year-old female, with past medical history of MS (diagnosed 1 year ago), migraines presented with sudden onset lower extremity weakness and loss of sensation, neck stiffness. Patient was febrile, Tmax at 1020.9 on presentation, elevated CRP at
25.
1. B/l LE weakness
-remains weak and not able to move toes on left, right foot can do that. sensation loss upto upper thigh bilaterally
-Extensive workup has been negative so far
-MRI brain/C/T/L-spine with and without contrast did not show any demyelinating lesion
-Lumbar puncture negative for any increased protein
-Infectious pathology including viral/bacterial panel has been negative. West Nile virus negative. Cryptococcus neoformans pending
-Lumbar puncture paraneoplastic panel was negative
-CSF albumin/myelin basic protein/oligoclonal gland studies pending.
-Patient got 2 doses of IV methylprednisone 400 mg, discontinued as no further clear indication.
-In light of persistent weakness without any clear explanation Case was discussed with [facility] who has accepted patient to be transferred for further evluation
-Please repeat MRI T and L-spine as discussion with transfer center neurology.
-Potential differential of MS pseudo-exacerbation versus viral polyneuropathy vs somatization
-Patient to be resumed back on home dose of diroximel fumarate -discussed with neurology/ID
2. COVID 19 viral infection
-Currently being maintained on prolonged Paxlovid course
-This to be continued till 05/13/24 per ID input
-no pulmonary complains.
3. Multiple sclerosis
-no new demyelinating disease
-diagnosed one year back and follows with neurology at [facility]
4. H/o migraine
-on Imitrex/Emgality at home
5. Anxiety/depression
Continue sertraline
DVT prophylaxis�SCDs
Case discussed with [facility] neurology for potential transfer for further evaluation. Patient has been accepted by Dr. Dave Gibbs
Total time spent : 53 mins
I personally saw and examined the patient.
I have reviewed all diagnostic interpretations and treatment plans as written.
Time includes patient management by me, time spent at the patients bedside, time to review lab and imaging results, discussing patient care, documentation in the medical record, and time spent with the family or caregiver and discussing care plan
with RN/Consultants.
Anticipated Discharge: > 48 hours
Subjective/Interval History
-
Date of Service: May 09, 2024
patient upset as was not sure why she has been taken off of steroids
patient continues to have difficult time moving her legs and not able to do much activity
afebrile in night
no cough/shortness breath/chest pain/abd pain/nausea/vomiting
Objective Data
-
Labs:
Laboratory Results
05/09/24
04:36
WBC 18.3 H
Hgb 12.7
Hct 37.6
Plt Count 332
Sodium 141
Potassium 4.5
Chloride 102
Carbon Dioxide 28
BUN 19 H
Creatinine 0.5 L
Glucose 127 H
Calcium 9.3
Total Bilirubin 0.2
AST 18
ALT 20
Alkaline Phosphatase 92
Vital Signs:
Vital Signs
Temp Pulse Resp BP Pulse Ox
97.9 F 55 12 112/82 95
05/09/24 03:41 05/09/24 06:00 05/09/24 06:00 05/09/24 06:00 05/09/24 06:00
I&O
05/08/24 05/09/24 05/10/24
06:59 06:59 06:59
Intake Total 480 / 480 200 / 200
Output Total 950 / 950 400 / 400
Balance -470 / -470 -200 / -200
Review of Systems
-
Respiratory: Reports No Symptoms
Cardiac: Reports No Symptoms
Abdomen/GI: Reports No Symptoms
Physical Exam
-
General: No Apparent Distress
HEENT: Oxygen
Cardiac: Regular Rhythm and S1/S2; Negative Murmur
GI: Soft, Nontender and Nondistended
Musculoskeletal: No Clubbing, No Cyanosis and No Edema
Neuro: Awake, Alert, Oriented and Other (Right foot able to move toes, left foot not able to do that)
[2024-05-09] MEDS: NOVOLOG FLEXPEN-LOW RESISTANCE SC ×3 (09:01→16:43)
--- NOTE | 2024-05-09 09:04 | W.PN.NEURO.1 ---
Today's Communication / Plan
-
Await remainder of CSF results
Completed on IVSM 500mg daily per ID discontinued this medication after 3 doses with the patient's marked improvement and lack of clarity regarding evidence of transverse myelitis
Vumerity may be restarted as per ID
Need records from her outpatient neurologist at [facility].
Management of COVID per ID.
Physical therapy evaluations
Neuro Assessment/Plan
Assessment
Abrupt onset right neck pain radiating down the back with subsequent inability to move arms or legs.
The patient previously has been diagnosed as having multiple sclerosis and migraine. Since hospitalization, the patient has been diagnosed with COVID-19.
she has had extensive neuroimaging including MRI brain, C/T/L spine; no new demyelinating lesions; no SC lesions to explain symptoms.
On exam she reports no sensation in BLE and 0/5 muscle strength beyond moving R toes spontaneously--likely at least some component of giveaway weakness on exam. Patient now with return of strength.
Differential diagnosis for symptomatology includes somatization disorder vs MS pseudo-exacerbation due to COVID. The reason that the patient is most likely experiencing a somatizations disorder includes absence of structural abnormalities extensive
neuroimaging as well as absence of transverse myelitis by lumbar puncture testing. The sudden improvement with 2 doses of high-dose steroids also makes the diagnosis of some matization more likely as this would be unlikely to suddenly produce such
a massive change in function
Plan
Await remainder of CSF results
started on IVSM 500mg daily per ID discontinued this medication after 3 doses with the patient's marked improvement and lack of clarity regarding evidence of transverse myelitis
Vumerity may be restarted as per ID
Need records from her outpatient neurologist at [facility].
Management of COVID per ID.
Physical therapy evaluations
Patient should have follow-up with her usual outpatient neurologist.
Subjective/Objective
Subjective Data
Date of Service: May 09, 2024
No significant variability
Objective Data
Vital Signs
Temp Pulse Resp BP Pulse Ox
36.6 C 55 12 112/82 95
05/09/24 03:41 05/09/24 06:00 05/09/24 06:00 05/09/24 06:00 05/09/24 06:00
Lab Results
05/09/24 04:36
05/09/24 04:36
PT 13.1 Sec (11.4-14.6) 05/04/24 15:08
INR 1.01 05/04/24 15:08
Sodium 141 mmol/L (135-145) 05/09/24 04:36
Potassium 4.5 mmol/L (3.5-5.1) 05/09/24 04:36
BUN 19 mg/dl (7-17) H 05/09/24 04:36
Glucose 127 mg/dl (70-99) H 05/09/24 04:36
Calcium 9.3 mg/dl (8.4-10.2) 05/09/24 04:36
Patient Allergies
diphenhydramine [From Benadryl] Allergy (Verified 05/03/24 16:20)
Hives
Tetanus Vaccines and Toxoid Allergy (Verified 05/03/24 16:20)
Unknown
Review of Systems
-
History Source: Patient
All other systems: Reviewed and negative
Physical Exam
-
General: No Apparent Distress and Appears Stated Age
Eyes: Round OU, [employer] Conjunctivae and No Ptosis
HEENT: Anicteric and Moist Mucous Membranes
Neck: Full Range of Motion
Respiratory: No Dyspnea
Cardiac: No JVD
Skin: Unremarkable
Extremities: No Clubbing, No Cyanosis and No Edema
Extended Neurological Exam
Mood & Affect: Mood Unremarkable and Affect Unremarkable
Attention Span & Concentration: Awake, Alert and Interactive
Memory: Unremarkable
Tremor: Hand Tremor Absent and Head Tremor Absent
Involuntary Movement: None
Speech: Quality Unremarkable and Quantity Unremarkable
Cranial Nerve II: Left Eye: Visual Nicholson Grossly Intact
Cranial Nerve II: Right Eye: Visual Nicholson Grossly Intact
Cranial Nerves III, IV, : Extraocular Movement: Grossly Intact
Cranial Nerve VII: Facial Symmetry: Normal Facial Symmetry
Cranial Nerve VIII: Hearing: Unremarkable Hearing to Normal Conversational Volume
Past History
Past History
ED Past Medical History: Other (MS) and Other (Migraines)
ED Past Surgical History: and Gynecological
Family History
Family History: Other (Reviewed and noncontributory)
Medications
-
Medications:
Generic Name Dose Route Start Last Admin
Trade Name Freq PRN Reason Stop Dose Admin
Acetaminophen 650 mg 05/03/24 23:47 05/04/24 22:55
Acetaminophen 325 Mg Tablet PO 05/31/24 23:46 650 mg
Q4HPRN PRN Administration
Mild Pain / Temp > 101
Dextrose 12.5 grams 05/07/24 12:00
Dextrose 50% (0.5 Grams/Ml) 50 Ml Syringe IV 06/04/24 11:59
[id number] PRN
hypoglycemia
Protocol
Enoxaparin Sodium 40 mg 05/07/24 18:00 05/08/24 17:38
Enoxaparin Sodium 40 Mg/0.4 Ml Syringe SC 06/04/24 17:59 40 mg
QPM MARTHA Administration
Glucagon 1 mg 05/07/24 12:00
Glucagon 1 Mg Vial IM 06/04/24 11:59
PRN PRN
hypoglycemia - no IV access
Protocol
Insulin Aspart 0 units 05/07/24 11:30 05/09/24 09:01
Insulin Aspart Low Resistance 300 Units/3 Ml Pen.Injctr SC 06/04/24 11:29 Not Given
AC MARTHA
Protocol
Multivitamins Therapeutic 1 tablet 05/06/24 10:00 05/09/24 09:26
Multivitamin Tablet PO 06/03/24 09:59 1 tablet
DAILY MARTHA Administration
Nirmatrelvir/Ritonavir 1 dose 05/09/24 08:00 05/09/24 10:01
Nirmatrelvir 300 Mg/Ritonavir 100 Mg (Paxlovid 300 Mg;100 Mg Dose Pack) PO 05/13/24 20:01 1 dose
BID MARTHA Administration
Vumerity (Diroximel 0 unit 05/09/24 20:00
Fumarate): Take 1 PO 06/06/24 19:59
Cap (462 Mg) Po BID MARTHA
Twice Daily
Pantoprazole Sodium 40 mg 05/09/24 08:00 05/09/24 09:27
Pantoprazole 40 Mg Delayed Release Tablet PO 06/06/24 07:59 40 mg
DAILY MARTHA Administration
Polyethylene Glycol 17 grams 05/07/24 09:58
Polyethylene Glycol Powder 17 Grams Packet PO 06/04/24 09:57
DAILYPRN PRN
constipation
Sertraline HCl 50 mg 05/04/24 08:00 05/09/24 09:26
Sertraline 50 Mg Tablet PO 06/01/24 07:59 50 mg
DAILY MARTHA Administration
Sodium Chloride 0 flush 05/04/24 01:00
Sodium Chloride 0.9% (Flush) Syringe IV 06/01/24 00:59
PER PROTOCOL MARTHA
[2024-05-09] MEDS: ZOLOFT 50 MG PO (09:26)
[2024-05-09] MEDS: THERAGRAN 1 TABLET PO (09:26)
[2024-05-09] MEDS: PROTONIX 40 MG PO (09:27)
[2024-05-09] MEDS: PAXLOVID 2X150 MG-100 MG DOSE PACK 1 DOSE PO ×2 (10:01→23:10)
--- NOTE | 2024-05-09 11:36 | PTCARENOTE ---
Pt downgraded to Med/surg. Pt ambulated to stretcher with rolling walker for transfer to [address] [place] [address]. Report given to Kulwinder.
[2024-05-09 12:54] LABS: Glucose - Point of Care 92 mg/dl (70-99)
[2024-05-09] MEDS: IMITREX 50 MG PO (15:46)
[2024-05-09 15:47] VITALS: BP 106/67
[2024-05-09 16:41] LABS: Glucose - Point of Care 94 mg/dl (70-99)
[2024-05-09] MEDS: LOVENOX 40 MG SC (17:20)
[2024-05-09 21:31] LABS: Glucose - Point of Care 126 mg/dl (70-99)
[2024-05-09 23:01] LABS: C.neoformans Antigen Negative (Negative)
[2024-05-09 23:06] VITALS: BP 108/64
[2024-05-09] MEDS: NON-FORMULARY ITEM 1 UNIT PO (23:11)
[2024-05-10 06:00] VITALS: BMI 37.2
[2024-05-10 07:30] VITALS: BP 107/67
[2024-05-10 07:57] LABS: Glucose - Point of Care 79 mg/dl (70-99)
[2024-05-10] MEDS: PAXLOVID 2X150 MG-100 MG DOSE PACK 1 DOSE PO ×2 (08:06→22:06)
[2024-05-10] MEDS: ZOLOFT 50 MG PO (08:06)
[2024-05-10] MEDS: PROTONIX 40 MG PO (08:06)
[2024-05-10] MEDS: NOVOLOG FLEXPEN-LOW RESISTANCE SC ×3 (08:06→17:08)
[2024-05-10] MEDS: THERAGRAN 1 TABLET PO (08:06)
[2024-05-10] MEDS: NON-FORMULARY ITEM 2 UNIT PO (08:07)
[2024-05-10] MEDS: IMITREX 50 MG PO (10:28)
[2024-05-10 10:37] LABS: Albumin Index 5.1 ratio (0.0-9.0); Albumin, CSF 19 mg/dL (0-35); Albumin, Serum 3722 mg/dL (3500-5200); CSF IgG Synthesis Rate 2.9 mg/d (<=8.0); CSF IgG/Albumin Ratio 0.21 ratio (0.09-0.25); CSF Oligoclonal Bands Positive (Negative); CSF Oligoclonal Bands Number 8 Bands (0-1); IgG 1095 mg/dL (768-1632); IgG, CSF 3.9 mg/dL (0.0-6.0)
[2024-05-10 11:46] LABS: Glucose - Point of Care 81 mg/dl (70-99)
--- NOTE | 2024-05-10 12:31 | W.PN.HOSP.TC ---
Today's Communication/Plan
-
repeat MR T/L spine
continue PT as tolerated
Pending [facility] transfer
Assessment / Plan
Assessment / Plan
39-year-old female, with past medical history of MS (diagnosed 1 year ago), migraines presented with sudden onset lower extremity weakness and loss of sensation, neck stiffness. Patient was febrile, Tmax at 1020.9 on presentation, elevated CRP at
25.
1. B/l LE weakness
-remains weak and not able to move toes on left, right foot can do that. sensation loss upto upper thigh bilaterally
-Extensive workup has been negative so far
-MRI brain/C/T/L-spine with and without contrast did not show any demyelinating lesion
-Lumbar puncture negative for any increased protein
-Infectious pathology including viral/bacterial panel has been negative. West Nile virus negative. Cryptococcus neoformans pending
-Lumbar puncture paraneoplastic panel was negative
-CSF albumin/myelin basic protein/oligoclonal gland studies pending.
-Patient got 2 doses of IV methylprednisone 400 mg, discontinued as no further clear indication.
-In light of persistent weakness without any clear explanation Case was discussed with [facility] who has accepted patient to be transferred for further evluation
-Repeat MRI T and L-spine as per discussion with transfer center neurology.
-Potential differential of transverse myelitis vs viral polyneuropathy vs somatization
-Patient to be resumed back on home dose of diroximel fumarate -discussed with neurology/ID
2. COVID 19 viral infection
-Currently being maintained on prolonged Paxlovid course
-This to be continued till 05/13/24 per ID input
-no pulmonary complains.
3. Multiple sclerosis
-no new demyelinating disease
-diagnosed one year back and follows with neurology at [facility]
4. H/o migraine
-on Imitrex/Emgality at home
5. Anxiety/depression
Continue sertraline
DVT prophylaxis�SCDs
Anticipated Discharge: 24 - 48 hours
Subjective/Interval History
-
Date of Service: May 10, 2024
Having migrainous headache
No nausea or vomiting
Lower extremity weakness persists
Objective Data
-
Vital Signs:
Vital Signs
Temp Pulse Resp BP Pulse Ox
98.2 F 72 14 107/67 98
05/10/24 07:30 05/10/24 07:30 05/10/24 07:30 05/10/24 07:30 05/10/24 07:30
I&O
05/09/24 05/10/24 05/11/24
06:59 06:59 06:59
Intake Total 200 / 200 1320 / 1320
Output Total 400 / 400 250 / 250
Balance -200 / -200 1070 / 1070
Review of Systems
-
Respiratory: Reports No Symptoms
Cardiac: Reports No Symptoms
Abdomen/GI: Reports No Symptoms
Neuro: Reports Headache and Weakness (B/l LE)
Physical Exam
-
General: No Apparent Distress
Cardiac: Regular Rhythm and S1/S2; Negative Murmur
GI: Soft, Nontender and Nondistended
Musculoskeletal: No Clubbing, No Cyanosis and No Edema
Neuro: Awake, Alert, Oriented and Other (Right foot able to move toes, left foot not able to do that)
[2024-05-10 15:30] VITALS: BP 104/61
[2024-05-10 15:52] LABS: Myelin Basic Protein, CSF 1.37 ng/mL (0.00-5.50)
[2024-05-10 17:01] LABS: Glucose - Point of Care 126 mg/dl (70-99)
[2024-05-10] MEDS: LOVENOX 40 MG SC (17:45)
[2024-05-10 21:50] LABS: Glucose - Point of Care 113 mg/dl (70-99)
[2024-05-10] MEDS: NON-FORMULARY ITEM 1 UNIT PO (22:06)
[2024-05-10 23:41] VITALS: BP 101/61
[2024-05-11 06:00] VITALS: BMI 37.0
[2024-05-11 06:45] VITALS: BP 110/70
[2024-05-11 07:49] LABS: Glucose - Point of Care 99 mg/dl (70-99)
[2024-05-11] MEDS: NOVOLOG FLEXPEN-LOW RESISTANCE SC ×3 (08:18→17:35)
[2024-05-11] MEDS: NON-FORMULARY ITEM 2 UNIT PO ×2 (08:18→20:12)
[2024-05-11] MEDS: ZOLOFT 50 MG PO (08:18)
[2024-05-11] MEDS: PROTONIX 40 MG PO (08:18)
[2024-05-11] MEDS: THERAGRAN 1 TABLET PO (08:18)
[2024-05-11] MEDS: PAXLOVID 2X150 MG-100 MG DOSE PACK 1 DOSE PO ×2 (08:18→20:11)
[2024-05-11 08:24] LABS: Blood Urea Nitrogen 26 mg/dl (7-17); Carbon Dioxide 31 mmol/L (22-30); Chloride 101 mmol/L (98-107); Estimated Creatinine Clearance > 125 ml/min; Glucose 83 mg/dl (70-99); Potassium 4.6 mmol/L (3.5-5.1); Sodium 139 mmol/L (135-145); eGFR > 60.00
[2024-05-11] MEDS: IMITREX 50 MG PO (10:52)
[2024-05-11 11:41] LABS: Glucose - Point of Care 80 mg/dl (70-99)
--- NOTE | 2024-05-11 12:41 | W.PN.UPDATE ---
Update Note
Progress Note Update
I saw and evaluated the patient. I reviewed the resident�s note and agree with findings and plan as documented in the resident�s note.
Patient continues to remain significantly weak in both LE. continues to have sensory changes.
1. B/l LE weakness
-remains weak and not able to move toes on left, right foot can do that. sensation loss upto upper thigh bilaterally
-Extensive workup has been negative so far
-MRI brain/C/T/L-spine with and without contrast did not show any demyelinating lesion
-Lumbar puncture negative for any increased protein
-Infectious pathology including viral/bacterial panel has been negative. West Nile virus negative. Cryptococcus neoformans pending
-Lumbar puncture paraneoplastic panel was negative
-CSF Myelin basic protein neg, have oligoclonal bands
-Patient got 2 doses of IV methylprednisone 500 mg, discontinued as no further clear indication.
-Repeat MRI T and L-spine negative for any new demyelinating area.
-Potential differential of transverse myelitis vs viral polyneuropathy vs somatization
-Patient to be resumed back on home dose of diroximel fumarate -discussed with neurology/ID
2. COVID 19 viral infection
-Currently being maintained on prolonged Paxlovid course
-This to be continued till 05/13/24 per ID input
-no pulmonary complains.
3. Multiple sclerosis
-no new demyelinating disease
-diagnosed one year back and follows with neurology at [facility]
4. H/o migraine
-on Imitrex/Emgality at home
5. Anxiety/depression
Continue sertraline
DVT prophylaxis�SCDs
Patient waiting for transfer to [facility].
--- NOTE | 2024-05-11 14:06 | W.PN.HOSP.TC ---
Today's Communication/Plan
-
Pt waiting for transfer to [facility].
Repeat MRI of thoracolumbar spine.
Assessment / Plan
Assessment / Plan
39-year-old female, with past medical history of MS (diagnosed 1 year ago), migraines presented with sudden onset lower extremity weakness and loss of sensation, neck stiffness. Patient was febrile, Tmax at 1020.9 on presentation, elevated CRP at
25.
1. Lower extremity weakness
-4+ strength bilateral upper extremities, lower extremities with 3+ strength at the ankles, no apparent strength in the distal or proximal legs
- MRI Thoracic spine - 05/10 was normal
- MRI of Lumar spine- 05/10 was normal
-MRI brain/C/T/L-spine with and without contrast did not show any demyelinating lesion
-Lumbar puncture negative for any increased protein
-Infectious pathology including viral/bacterial panel has been negative. West Nile virus negative. Cryptococcus neoformans pending
-Lumbar puncture paraneoplastic panel was negative
-CSF albumin/myelin basic protein/oligoclonal gland studies pending.
-Patient got 2 doses of IV methylprednisone 400 mg, discontinued as no further clear indication.
-In light of persistent weakness without any clear explanation Case was discussed with [facility] who has accepted patient to be transferred for further evluation
-Repeat MRI T and L-spine as per discussion with transfer center neurology- pending
-Potential differential of transverse myelitis vs viral polyneuropathy vs somatization
-Patient to be resumed back on home dose of diroximel fumarate -discussed with neurology/ID
2. COVID 19
-ID consulted
-Paxlovid to be continued till 05/13/24
3. Multiple sclerosis
-no new demyelinating disease
-diagnosed one year back and follows with neurology at [facility]
4. H/o migraine
-on Imitrex/Emgality at home
5. Anxiety/depression
Continue sertraline
DVT prophylaxis�SCDs
Anticipated Discharge: - 48 hours
Subjective/Interval History
-
Date of Service: May 11, 2024
Patient had no acute complaints.
Objective Data
-
Labs:
Laboratory Results
05/11/24
06:59
Sodium 139
Potassium 4.6
Chloride 101
Carbon Dioxide 31 H
BUN 26 H
Creatinine 0.7
Glucose 83
Calcium 9.0
Vital Signs:
Vital Signs
Temp Pulse Resp BP Pulse Ox
98.2 F 64 16 110/70 97
05/11/24 06:45 05/11/24 06:45 05/11/24 06:45 05/11/24 06:45 05/11/24 06:45
I&O
05/10/24 05/11/24 05/12/24
06:59 06:59 06:59
Intake Total 1320 / 1320 1600 / 1600
Output Total 250 / 250 2650 / 2650
Balance 1070 / 1070 -1050 / -1050
Review of Systems
-
History Source: Patient
All other systems: Reviewed and negative
Physical Exam
-
General: Well Developed, Well Nourished and No Apparent Distress
HEENT: Normocephalic and Atraumatic
Respiratory: Clear to Auscultation
Cardiac: S1/S2
Musculoskeletal: Other (4+ strength bilateral upper extremities, lower extremities with 3+ strenght at the ankles, no apparent strength in the distal or proximal legs)
Neuro: Awake, Alert and Oriented
Psych: Calm
Data Reviewed
-
Ultrasound: Image personally visualized and interpreted
MRI: Image personally visualized and interpreted and Report Reviewed by me
[2024-05-11 15:25] VITALS: BP 93/62
[2024-05-11 17:30] VITALS: BP 103/65
[2024-05-11] MEDS: LOVENOX 40 MG SC (17:37)
[2024-05-11 17:46] LABS: Glucose - Point of Care 91 mg/dl (70-99)
[2024-05-11] MEDS: TYLENOL 650 MG PO (20:24)
[2024-05-11 21:54] LABS: Glucose - Point of Care 107 mg/dl (70-99)
[2024-05-11 23:17] VITALS: BP 101/66
[2024-05-12] MEDS: IMITREX 50 MG PO (05:12)
[2024-05-12 06:00] VITALS: BMI 36.8
[2024-05-12 07:33] LABS: Glucose - Point of Care 93 mg/dl (70-99)
[2024-05-12 07:59] VITALS: BP 108/66
[2024-05-12] MEDS: THERAGRAN 1 TABLET PO (08:17)
[2024-05-12] MEDS: NOVOLOG FLEXPEN-LOW RESISTANCE SC ×2 (08:17→11:06)
[2024-05-12] MEDS: PROTONIX 40 MG PO (08:18)
[2024-05-12] MEDS: PAXLOVID 2X150 MG-100 MG DOSE PACK 1 DOSE PO (08:18)
[2024-05-12] MEDS: NON-FORMULARY ITEM 2 UNIT PO (08:18)
[2024-05-12] MEDS: ZOLOFT 50 MG PO (08:18)
[2024-05-12 09:07] LABS: Blood Urea Nitrogen 24 mg/dl (7-17); Calcium 9.1 mg/dl (8.4-10.2); Carbon Dioxide 30 mmol/L (22-30); Chloride 99 mmol/L (98-107); Estimated Creatinine Clearance > 125 ml/min; Glucose 93 mg/dl (70-99); Potassium 5.2 mmol/L (3.5-5.1); Sodium 138 mmol/L (135-145); eGFR > 60.00
--- NOTE | 2024-05-12 10:48 | W.PN.ID1 ---
Date of Service
Date of Service: May 12, 2024
Today's Communication
tomorrow is final day of paxlovid
ID service will no longer actively follow this patient please recall for further questions
Assessment / Plan
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
Covid Infection - resolving
MS
Immunosuppression
Class II Obesity
- c/w paxlovid x10 days - longer course given the recent high dose steroids, 05/04-05/13
- MRI w and w/o contrast brain, C spine, T spine, L spine without new lesions, there are possible old lesions in the brain
- LP - normal CSF cell count, protein, glucose
- meningitis panel including enterovirus, CMV, HSV, VZV - negative
- west nile serologies on plasma and CSF negative
- lyme serology negative, PCR on the CSF negative
- hep A/B/C serologies - prior vax to hep B, otherwise negative
- cryptococcus ag on csf negative
- syphilis serology negative - reports shes had STI panel including HIV screen prior after her last new sexual partner, never had an STI
- ID service will no longer actively follow this patient please recall for further questions
Chief Complaint
-: Other (COVID, polyneuropathy)
Subjective / Review of Systems
afebrile
was able to walk to stretcher 05/09 per RN, patient also reports walking from the bed to the chair today
pending transfer to [facility]
Vital Signs / Physical Exam
Vital Signs
Vital Signs
Temp Pulse Resp BP Pulse Ox
97.1 F 68 18 108/66 99
05/12/24 07:59 05/12/24 07:59 05/12/24 07:59 05/12/24 07:59 05/12/24 07:59
Physical Exam
Constitutional: No Acute Distress
Cardiovascular: Regular Rate and S1/S2; Negative Murmur or Rub
Pulmonary: Clear and Symmetric; Negative Wheezes or Rales
Gastrointestinal: Soft, Non Tender, Non Distended and Normal Bowel Sounds
Skin: Warm and Dry; Negative Rash or Jaundice
Neurological: Other (strength 4/5 in the bilateral upper extremities proximal and distal; LLE 1+ strength in the proximal and distal leg, RLE distal leg 4+, quad 1+, foot 4+)
Objective Data
Lab Data
Lab Results
05/09/24 04:36
05/12/24 08:06
ESR Cancelled 05/03/24 16:37
PT 13.1 Sec (11.4-14.6) 05/04/24 15:08
INR 1.01 05/04/24 15:08
Estimated Creat Clear > 125 ml/min 05/12/24 08:06
Lactic Acid Cancelled 05/03/24 20:30
Total Bilirubin 0.2 mg/dl (0.2-1.3) 05/09/24 04:36
AST 18 U/L (14-36) 05/09/24 04:36
ALT 20 U/L (0-35) 05/09/24 04:36
Alkaline Phosphatase 92 U/L (38-126) 05/09/24 04:36
C-Reactive Protein Cancelled 05/03/24 16:37
Crytop ag negative on csf
IgG index was mildly elevated at 0.7
syphilis serology negative
lyme pcr neg
Most recent labs reviewed.
Micro Results:
05/03/24 16:03 CSF Culture - Final
Csf No Growth After 5 Days - Final Report
Gram Stain - Final
05/03/24 16:28 Blood Culture - Final
Blood/Venous No Growth - Final Report
05/05/24 16:03 Meningitis/Encephalitis Panel (PCR) - Final
Csf
Care Review
Plan reviewed with: Physician (Dr Madrid and Dr Curtis (resident) )
--- NOTE | 2024-05-12 11:32 | CM ---
Patient seen bedside.
Plan is for transfer to [facility].
Transfer forms on chart.
Buy back received, signed, and faxed back to [facility] at [phone].
Plan: [facility] when bed available.
[2024-05-12 11:35] VITALS: BP 102/67; PULSE 89; O2SAT 98
[2024-05-12 11:42] VITALS: BP 102/67; PULSE 89; O2SAT 98
--- NOTE | 2024-05-12 12:46 | W.PN.UPDATE ---
Update Note
Progress Note Update
I saw and evaluated the patient. I reviewed the resident�s note and agree with findings and plan as documented in the resident�s note.
Remains weak in both LE, no change in sensation .
No reported headache issues today.
1. B/l LE weakness and senory loss.
-Extensive workup has been negative so far.
-MRI brain/C/T/L-spine with and without contrast did not show any demyelinating lesion
-Lumbar puncture negative for any increased protein
-Infectious pathology including viral/bacterial panel has been negative. West Nile virus negative. Cryptococcus neoformans neg.
-Lumbar puncture paraneoplastic panel was negative
-CSF Myelin basic protein neg, have oligoclonal bands of unclear significance.
-Patient got 2 doses of IV methylprednisone 500 mg, discontinued as no further clear indication.
-Repeat MRI T and L-spine negative for any new demyelinating area.
-Potential differential of transverse myelitis vs viral polyneuropathy vs somatization
-Patient to be resumed back on home dose of diroximel fumarate -discussed with neurology/ID
2. COVID 19 viral infection
-Currently being maintained on prolonged Paxlovid course
-This to be continued till 05/13/24 PM per ID input
-no pulmonary complains.
3. Multiple sclerosis
-no new demyelinating disease
-diagnosed one year back and follows with neurology at [facility]
4. H/o migraine
-on Imitrex/Emgality at home
5. Anxiety/depression
Continue sertraline
DVT prophylaxis�SCDs
Contacted by [facility] transfer center and updated. Patient waiting for bed assignment and will be transferred to [facility] for further evaluation.
Total time spent : 52 mins
--- NOTE | 2024-05-12 13:23 | W.PN.HOSP.TC ---
Today's Communication/Plan
-
Continue Paxlovid
Follow Pt recommendations after discharge
pending transfer to [facility]
Assessment / Plan
Assessment / Plan
39-year-old female, with past medical history of MS (diagnosed 1 year ago), migraines presented with sudden onset lower extremity weakness and loss of sensation, neck stiffness. Patient was febrile, Tmax at 102.9 on presentation, elevated CRP at
25.
1. Lower extremity weakness
-4+ strength bilateral upper extremities, lower extremities with 3+ strength at the ankles, no apparent strength in the distal or proximal legs
- WBC is 18.3- most likely reactive leucocytosis
- Case is being transferred to [facility]
- Physical therapy recommends acute rehab ( will benefit from skilled therapy 3 or more hours a day)
2. COVID 19
-ID consulted
-Paxlovid to be continued till 05/13/24
3. Multiple sclerosis
-no new demyelinating disease
-diagnosed one year back and follows with neurology at [facility]
- patient is ok to continue Vumerity according to neurology/ID
4. H/o migraine
-on Imitrex/Emgality at home
5. Anxiety/depression
Continue sertraline
DVT prophylaxis�SCDs
Anticipated Discharge: Within 24 hours
Subjective/Interval History
-
Date of Service: May 12, 2024
Patient has no acute complaints.
Objective Data
-
Labs:
Laboratory Results
05/12/24
08:06
Sodium 138
Potassium 5.2 H
Chloride 99
Carbon Dioxide 30
BUN 24 H
Creatinine 0.7
Glucose 93
Calcium 9.1
Vital Signs:
Vital Signs
Temp Pulse Resp BP Pulse Ox
97.1 F 68 18 108/66 99
05/12/24 07:59 05/12/24 07:59 05/12/24 07:59 05/12/24 07:59 05/12/24 07:59
I&O
05/11/24 05/12/24 05/13/24
06:59 06:59 06:59
Intake Total 1600 / 1600 1440 / 1440
Output Total 2650 / 2650 1750 / 1750
Balance -1050 / -1050 -310 / -310
Review of Systems
-
History Source: Patient
All other systems: Reviewed and negative
Physical Exam
-
General: Well Developed and Well Nourished
HEENT: Normocephalic and Atraumatic
Respiratory: Clear to Auscultation
Cardiac: S1/S2
Musculoskeletal: Other (4+ strength bilateral upper extremities, lower extremities with 3+ strenght at the ankles, no apparent strength in the distal or proximal legs))
Neuro: Awake, Alert and Oriented
Psych: Calm
Data Reviewed
-
Labs: Labs Reviewed by me and Discussed with Physician
[2024-05-12 16:00] VITALS: BP 108/68
[2024-05-12] MEDS: LOVENOX 40 MG SC (16:49)
--- NOTE | 2024-05-12 17:55 | PTCARENOTE ---
Bed available at [facility]. Ambulance pickup time scheduled for 1899. Patient updated.
== END 2024-05-12 19:15 | disposition short-term general hospital (02) | DRG 73 ==
LOC: 2 NORTH 22:18
PROVIDERS: Radiology Vascular & Interventional Radiology; Student in an Organized Health Care Education/Training Program; ADMITTING PHYSICIAN Hospitalist; ATTENDING PHYSICIAN Hospitalist; CONSULT PHYSICIAN Physical Medicine & Rehabilitation; CONSULT PHYSICIAN Psychiatry & Neurology Neurology; EMERGENCY PHYSICIAN Emergency Medicine; FAMILY PHYSICIAN Family Medicine; OTHER PHYSICIAN Student in an Organized Health Care Education/Training Program
PROC: B01B1ZZ Fluoroscopy of Spinal Cord using Low Osmolar Contrast (ICD-10-PCS; 2024-05-05)
PROC: 009U3ZX Drainage of Spinal Canal, Percutaneous Approach, Diagnostic (ICD-10-PCS; 2024-05-05)
DX: G62.9 Polyneuropathy, unspecified (principal); A41.89 Other specified sepsis; U07.1 COVID-19; G06.2 Extradural and subdural abscess, unspecified; G37.3 Acute transverse myelitis in demyelinating disease of central nervous system; G82.20 Paraplegia, unspecified; D84.9 Immunodeficiency, unspecified; G35 Multiple sclerosis; F41.9 Anxiety disorder, unspecified; F32.A Depression, unspecified; E66.09 Other obesity due to excess calories; Z68.36 Body mass index [BMI] 36.0-36.9, adult
CPT/HCPCS: 62328; 70450; 70553; 71045; 72125; 72156; 72157; 72158; 80048; 80053; 81003; 81015; 82040; 82042; 82248; 82784; 82945; 82962; 83605; 83873; 83916; 84157; 84443; 84703; 85025; 85027; 85610; 85652; 86140; 86255; 86480; 86618; 86704; 86706; 86708; 86780; 86788; 86803; 87015; 87040; 87070; 87205; 87327; 87340; 87476; 87483; 87811; 89051; 93005; 96365; 96367; 96375; 97116; 97163; 97167; 97530; 97535; 99291; A9575

== ENCOUNTER 2024-05-13 20:32 | Inpatient (IN) | payer OTHER, SELFPAY ==
--- NOTE | 2024-05-13 20:40 | HPS.HSE ---
Family Physician
-
Family Physician: Denilson Richter
Chief Complaint
-
Return to after transfer to [place]
History of Present Illness
39 F with PMHx:
Recent COVID-19 infection
Multiple sclerosis
Migraine headaches
Anxiety
Depression
Obesity due to excess calories
who presents as a transfer back from [facility]. Patient was hospitalized at [facility] from 05/03/24-05/12/24 after presenting for global weakness, neck pain, back pain as outlined in the H&P done on 05/03/24. She underwent an extensive workup
while hospitalized over 9 days including, but not limited to:
1. MRI brain and cervical/thoracic/lumbar spine without demyelinating lesions
2. Lumbar puncture done and CSF with normal glucose and protein, WBC 1. Also infectious workup of the cerebrospinal fluid was negative for viral or bacterial pathogens (meningitis/encephalitis PCR panel NEG) including West Nile virus and
cryptococcus neoformans. CSF paraneoplastic panel and myelin basic protein were negative. CSF oligoclonal bands were positive and likely not significant in a patient with known multiple sclerosis.
3. TB QuantiFERON gold was negative
The case was discussed with neurologist, Dr. Joselo Gama, at [facility] and it was felt by the the team that the patient's symptoms were due to functional neurological disorder. She was transferred back to [facility] to arrange for safe discharge
and placement.
Currently the patient has no new complaints. She reports that her lower extremity weakness is unchanged. She also reports that she has intermittent nausea but this is chronic. Currently denies chest pain, shortness of breath, abdominal pain,
diarrhea.
Medical History
Past Medical History
Past Medical History: Reports Other (as per HPI)
Past Surgical History: Reports Other (N/A)
Social History
Tobacco: Former Smoker
Alcohol: None
Drug: None
Family History
Family History: Not pertinent
Allergies / Home Medications
Allergies reflects when Allergies were last updated in [employer].
Home Medications with original date entered in [employer]
Allergy/Medication List:
Allergies
Allergy/AdvReac Type Severity Reaction Status Date / Time
diphenhydramine Allergy Hives Verified 05/03/24 16:20
[From Benadryl]
Tetanus Vaccines and Toxoid Allergy Unknown Verified 05/03/24 16:20
berries Allergy Hives Uncoded 05/13/24 21:02
Home Medications
diroximel fumarate 231 mg capsule,delayed release (Vumerity) 462 mg PO BID Multiple sclerosis, 05/03/24
estradiol 2 mg tablet 2 mg PO DAILY hormone 05/03/24
gabapentin 400 mg capsule 400 mg PO TID Pain 05/03/24
galcanezumab-gnlm 120 mg/mL subcutaneous pen injector (Emgality Pen) 120 mg SC MONTHLY cluster/migraine headache 05/03/24
omeprazole 20 mg capsule,delayed release 20 mg PO DAILY gerd 05/03/24
ondansetron HCl 4 mg tablet 4 mg PO TIDPRN PRN nausea 05/03/24
sertraline 50 mg tablet 50 mg PO DAILY Mental Health/Anxiety 05/03/24
sumatriptan succinate 50 mg tablet 50 mg PO UD PRN migraine 05/03/24
divalproex 500 mg tablet,delayed release 500 mg PO BID 05/13/24
Review of Systems
-
History Source: Patient
A 12 point ROS was completed and negative except as noted: Yes
Physical Exam
Physical Exam
General: Other (.)
Impression/Plan
-
Gen: NAD, AAOx3.
Eyes: EOMI, PERRLA, no scleral icterus.
Neck: supple.
CV: RRR, +S1/S2, no m/r/g.
Resp: CTAB, no rales, wheezes, or rhonchi.
Abd: +BS, soft, NT, ND
Skin: No rashes.
Neuro: CN 2-12 intact, R ankle with 3/5 strength, R hip flexors 1/5 strength, LLE 0/5
Psych: Normal mood and affect.
B/L LE weakness and sensory loss:
-pt has had an extensive workup (as documented in the HPI) including a transfer to [facility] for evaluation. Current diagnosis is functional neurological disorder.
-transferred back to for placement (buyback)
Recent COVID-19 infection:
-No indication for isolation
-No indication for further treatment (received a course of Paxlovid)
Multiple sclerosis:
-no new demyelinating disease on recent MRIs
Migraine headaches:
-on Imitrex/Emgality at home
Anxiety/depression:
-Continue sertraline
Dispo: admission at for placement only. Medically cleared for discharge. Case management is already aware.
[2024-05-13 20:45] VITALS: BP 102/62
[2024-05-13 20:49] VITALS: BMI 35.9
[2024-05-13] MEDS: DEPAKOTE (12 HR RELEASE) 500 MG PO (22:55)
[2024-05-13] MEDS: NEURONTIN 400 MG PO (22:55)
[2024-05-13] MEDS: NON-FORMULARY ITEM 462 MG PO (23:03)
[2024-05-13 23:10] VITALS: BP 94/49
[2024-05-14 07:49] VITALS: BP 106/69
[2024-05-14] MEDS: NEURONTIN 400 MG PO ×2 (08:01→16:38)
[2024-05-14] MEDS: NON-FORMULARY ITEM 462 MG PO (08:01)
[2024-05-14] MEDS: ZOLOFT 50 MG PO (08:01)
[2024-05-14] MEDS: DEPAKOTE (12 HR RELEASE) 500 MG PO (08:01)
[2024-05-14] MEDS: ESTRACE 2 MG PO (08:01)
[2024-05-14] MEDS: PROTONIX 40 MG PO (08:01)
[2024-05-14 11:00] VITALS: BP 106/66; PULSE 78
[2024-05-14 11:25] VITALS: BP 106/66; PULSE 78
--- NOTE | 2024-05-14 14:31 | W.PN.HOSP.TC ---
Today's Communication/Plan
-
d/c planning for [facility]
Assessment / Plan
Assessment / Plan
1. B/l LE weakness and sensory loss
Functional neurologic disorder
-Extensive workup has been negative so far.
-MRI brain/C/T/L-spine with and without contrast did not show any demyelinating lesion
-Lumbar puncture negative for any increased protein
-Infectious pathology including viral/bacterial panel has been negative.
-Lumbar puncture paraneoplastic panel was negative
-CSF Myelin basic protein neg, have oligoclonal bands of unclear significance.
-Patient got 2 doses of IV methylprednisone 500 mg, discontinued as no further clear indication.
-Repeat MRI T and L-spine negative for any new demyelinating area.
-Patient evaluated by [facility] neurology as well and diagnosed functional neurological disorder
-Patient will need acute rehab and will be [facility].
2. COVID 19 viral infection - Resolved
-Finish course of Paxlovid therapy
-Off of isolation protocol
3. Multiple sclerosis
-no new demyelinating disease
-diagnosed one year back and follows with neurology at [facility]
-Resume back on home medication of vumerity
4. H/o migraine
-on Imitrex/Emgality at home
5. Anxiety/depression
Continue sertraline
DVT prophylaxis�SCDs
Discharge to [facility]
Anticipated Discharge: Within 24 hours
Subjective/Interval History
-
Date of Service: May 14, 2024
able to campaign developer RLE and able to lift
not able to move LLE still
Objective Data
-
Vital Signs:
Vital Signs
Temp Pulse Resp BP Pulse Ox
97.9 F 73 16 106/69 98
05/14/24 07:49 05/14/24 07:49 05/14/24 07:49 05/14/24 07:49 05/14/24 11:05
I&O
05/13/24 05/14/24 05/15/24
06:59 06:59 06:59
Intake Total 480 / 480
Output Total 250 / 250
Balance 230 / 230
Review of Systems
-
Respiratory: Reports No Symptoms
Cardiac: Reports No Symptoms
Abdomen/GI: Reports No Symptoms
Physical Exam
-
General: Well Developed and Well Nourished
HEENT: Normocephalic and Atraumatic
Musculoskeletal: Other (able to move right leg, no strength in LLE)
Neuro: Awake, Alert and Oriented
Psych: Calm
--- NOTE | 2024-05-14 15:12 | CM ---
Addendum entered by Katiana Sanford RN 05/14/24 15:27:
Plan: Discharge to [facility]
Call report to: [phone]
Fax report to: [phone]
Original Note:
Reviewed the chart notes and spoke with the patient at the bedside. The patient resides with her mother, daughter, and nieces in a two story home with two steps to enter. The patient has a rolling walker, shower chair, bsc, and wheelchair. The
patient anticipates being discharged tomorrow to [facility]. The patient confirmed her pharmacy of choice is [facility] [address] CM continues to be available to patient/family and is monitoring medical plan for needs at discharge.
Plan: Discharge to [facility] tomorrow. No precert required due to [facility] being a [facility].
[2024-05-14 15:35] VITALS: BP 102/66
--- NOTE | 2024-05-14 17:16 | PTCARENOTE ---
[facility] at [facility]. RN instructed to call back to 1850 with any further questions until 1900 if need be.
--- NOTE | 2024-05-15 17:15 | W.DCSUMMARY ---
Discharge Summary
Discharge Data
Date of Admission: 05/13/24
Date of Discharge: 05/14/24
-
Pending Results: No
Hospital Course
Discharging Physician : Dr Gunner Gonzalez
Disposition : To [facility]
Primary care physician :Unknown
Principal Discharge diagnosis :
Bilateral lower extremity weakness/sensory changes presumed functional neurological disorder
Chronic Discharge diagnosis :
History of multiple sclerosis
Depression/anxiety
Migraine
Hospital Course :
39-year-old female with history of MS on Vumerity, migraine on Imitrex/Emgality came to ER with new onset of neck pain upper and lower extremity weakness. Patient was tested positive for COVID. Initial workup with MRI brain/C/T/L-spine did not
show any demyelinating lesions. Neurology was following along and patient was given 2 days worth of steroid therapy. Patient got a follow-up lumbar puncture which did not show any abnormality, no increased protein. Patient had test for infectious
pathology/paraneoplastic panel on CSF sample and all other extensive testing was negative. Patient had improvement in upper extremity weakness although lower extremity weakness persisted. Patient also had sensory loss in lower extremity. There was
concern of patient having possible functional neurological disorder. Case was discussed with [facility] neurology for second opinion and was accepted for evaluation. [facility] neurology evaluated patient
and supported the diagnosis of likely functional neurological disorder. Patient was transferred back to [facility] for placement. Patient was discharged to [facility].
Important imaging findings :
None
Procedure findings :
None
Discharge Plan
-
Patient Disposition: Acute Rehab Facility
Discharge Diagnosis/Procedures: LE weakness/sensation loss, Functional neurological disorder
Condition: Fair
Diet: Regular
Activity: As tolerated
Driving Restrictions: No driving
Bathing Restrictions: OK to Shower
Referrals:
Denilson Richter MD [Family Provider] -
Prescriptions:
Continued
gabapentin 400 mg capsule
400 mg PO TID
sumatriptan succinate 50 mg tablet
50 mg PO UD PRN (Reason: migraine)
Rx Instructions:
1 TABLET AT LEAST 2 HOURS BETWEEN DOSES NEEDED ORALLY ONCE DAILY 30 DAYS
omeprazole 20 mg capsule,delayed release(DR/EC)
20 mg PO DAILY
estradiol 2 mg tablet
2 mg PO DAILY
sertraline 50 mg tablet
50 mg PO DAILY
Emgality Pen 120 mg/mL pen injector
120 mg SC MONTHLY
Rx Instructions:
next dose 05/28/24.
Vumerity 231 mg capsule,delayed release(DR/EC)
462 mg PO BID
ondansetron HCl 4 mg tablet
4 mg PO TIDPRN PRN (Reason: nausea)
divalproex 500 mg Tablet,Delayed Release (Dr/Ec)
500 mg PO BID
Discharge Orders:
Discharge Patient (As Directed); Ordered 05/14/24
Ordered By: Gunner Gonzalez
Discharge Date and Time
Discharge Date/Time: 05/14/24 17:30
Print Language: PORTUGUESE
== END 2024-05-14 17:30 | DRG 58 ==
LOC: 2 NORTH 20:32
PROVIDERS: ADMITTING PHYSICIAN Internal Medicine; ATTENDING PHYSICIAN Hospitalist
DX: G35 Multiple sclerosis (principal); U07.1 COVID-19; Z87.891 Personal history of nicotine dependence; F41.9 Anxiety disorder, unspecified; F32.A Depression, unspecified
CPT/HCPCS: 97162; 97166